=== PATIENT | female | born 1940 | race Caucasian/White ===

== ENCOUNTER 2016-10-07 13:45 | Emergency (ER) | payer MEDICARE ==
[~2016-10-07] VITALS: Ht 157.5 cm; Wt 104.3 kg
[~2016-10-07 13:45] MED LIST: ACET650T8 PO; ALBU0.63 NEB; ASPI325T11 PO; CALC600T4 PO; DICL75TA PO; HYDR-2762 PO; LOSA1TAB17 PO; METH-37 PO; MIRT45TA3 PO; OMEP40CA5 PO; OXYC-323 PO; PRAV40TA2 PO; TIOT18CA IH; VENTOLIN HFA18 GM INH
--- NOTE | 2016-10-07 14:47 | RAD ---
EXAM: Pelvis and right hip, 3 views. HISTORY: Pain. COMPARISON: None. FINDINGS: A frontal view the pelvis and frontal and frog-leg views of the right hip are obtained. No fracture is seen. There is degenerative change involving the lower lumbar spine and there is lumbar levoscoliosis. IMPRESSION: 1. No acute osseous finding. 2. Scoliosis and degenerative change involving the lumbar spine.
[2016-10-07] MEDS ORDERED: HYDROMORPHONE 2 MG/ML VIAL. IM ONE (15:00)
[2016-10-07] MEDS ORDERED: OXYC10TA PO (15:44)
--- NOTE | 2016-10-07 15:44 | PHYS DOC ---
Past Medical History Past Medical History: GERD, Hypertension Past Surgical History: Appendectomy, Cholecystectomy, Hysterectomy, Knee Replacement, Tonsillectomy Alcohol Use: Occasionally Drug Use: None Adult General Chief Complaint Chief Complaint: HIP PAIN HPI HPI Patient is a 76 year old female who presents with right hip pain. Patient reports she has been having increasing pain in her right hip over the course of several months. Today she was out shopping with her daughter, and her right hip became painful enough that she is unable to put any weight on the right lower extremity. No trauma or other inciting event. She has been taking Tylenol and diclofenac for the pain with insufficient relief. She does use a walker at home. She has an appointment with an orthopedist, but does not have that appointment for a few more weeks. No other acute complaints. Review of Systems Review of Systems Constitutional: Denies fever or chills Respiratory: Denies cough or shortness of breath Cardiovascular: Denies chest pain GI: Denies abdominal pain, nausea, vomiting, or diarrhea Musculoskeletal: R hip pain Neurologic: Denies headache, focal weakness or sensory changes Current Medications Current Medications Current Medications Medications (Trade) Dose Ordered Sig/Toi Start Time Stop Time Status Last Admin Dose Admin Hydromorphone HCl (Dilaudid) 1 mg 1X ONCE 10/07/16 15:00 10/07/16 15:01 DC 10/07/16 14:35 1 MG Allergies Allergies Allergies Coded Allergies Type Severity Reaction Last Updated Verified milk Adverse Reaction Unknown Nausea and Vomiting 12/21/15 Yes Physical Exam Physical Exam Constitutional: Well developed, well nourished, no acute distress, non-toxic appearance HENT: Normocephalic, atraumatic Eyes: EOMI, conjunctiva normal, no discharge Neck: No stridor Pulmonary: No respiratory distress Cardiovascular: RRR Skin: Warm, dry Musculoskeletal: R hip visually unremarkable; no erythema, wound, warmth to touch noted; 2+ DP pulse; pain in hip with passive ROM; no point TTP Neurologic: Alert and oriented X 3 Psychologic: Affect normal, judgement normal, mood normal Current Patient Data Vital Signs Vital Signs Date Time Temp Pulse Resp B/P Pulse Ox O2 Delivery O2 Flow Rate FiO2 10/07/16 14:54 160/81 97 Room Air 10/07/16 14:35 24 10/07/16 13:50 98.7 109 98.7 EKG EKG [] Radiology/Procedures Radiology/Procedures X-ray R hip: IMPRESSION: 1. No acute osseous finding. 2. Scoliosis and degenerative change involving the lumbar spine. Course & Med Decision Making Course & Med Decision Making Pertinent Labs and Imaging studies reviewed. (See chart for details) Patient is 76-year-old female who presents with right hip pain. Possible osteoarthritis or bursitis. Will obtain x-ray of right hip. IM pain medication ordered for pain control. Imaging results as above. Discussed results with patient and her daughter. Patient reports pain improved, and she is able to bear weight at this point, but is still having a fair amount of pain. Oral pain medication ordered for further pain control. At this time will turn patient care over to Dr. Mcclure for further management. If pain brought under control, will discharge home with rx for pain medication, ortho follow up, and return precautions. Dragon Disclaimer Dragon Disclaimer This electronic medical record was generated, in whole or in part, using a voice recognition dictation system. Departure Departure Impression: Primary Impression: Hip pain, right Disposition: 01 HOME, SELF-CARE Condition: IMPROVED Referrals: AVERY HAWTHORNE MD (PCP) Patient Instructions: Hip Pain Additional Instructions: Thank you for allowing us to provide care today in the Emergency Department. Take the provided medication as directed. Use caution when taking this medication as it can make you drowsy. Schedule a follow up appointment with your primary care doctor. Also keep your follow up appointment with the orthopedic surgeon. Return promptly to the Emergency Department if you develop any new or concerning symptoms. Scripts Oxycodone Hcl 10 Mg Nmdedt23 Mg PO Q8HRS PRN PAIN #30 TAB Ref 0 Prov:LORENA BNONER MD 10/07/16 LORENA BONNER MD Oct 07, 2016 15:44
[2016-10-07] MEDS ORDERED: OXYCODONE IR 5 MG TABLET. PO ONE (16:00)
[2016-10-07 16:54] LABS: CREATININE 0.9 mg/dL (0.6-1.0); GFR 61.2; POTASSIUM 3.9 mmol/L (3.5-5.1)
[2016-10-07] MEDS ORDERED: HYDROMORPHONE 2 MG/ML VIAL. IV ONE (17:30)
[2016-10-07] MEDS ORDERED: KETOROLAC 15 MG/ML VIAL. IV ONE (17:45)
[2016-10-07 18:22] VITALS: BP 172/78
--- NOTE | 2016-10-07 18:45 | RAD ---
PROCEDURE CT right hip without contrast dated 10/07/2016. HISTORY Right hip pain. No known injury. TECHNIQUE Contiguous axial imaging of right hip performed. No contrast administered. Thin cut coronal and sagittal reconstructions.Exposure: One or more of the following individualized dose reduction techniques were utilized for this exam: 1. Automated exposure control. 2. Adjustment of the mA and/or kV according to patient size. 3. Use of iterative reconstruction technique. COMPARISON Plain films done same day. FINDINGS There is a subtle radiolucent line along the base of the femoral neck/intratrochanteric region seen only on the coronal images( images 45 and 46) with slight elevation of the periosteum. No displaced fracture. The lucent line does not next extent posteriorly. Alignment is anatomic. Mild degenerative change at the right hip joint. The right-sided pelvic ring is otherwise intact. There is fatty atrophy of the proximal thigh musculature on the right. No apparent joint effusion or loose body. Vascular calcinosis. Scattered diverticulum within the distal colon. No pelvic adenopathy or free fluid. Right inguinal hernia containing only fat. IMPRESSION - No evidence of displaced right hip fracture. - Subtle radiolucent line at the anterior intertrochanteric region seen only on the coronal sequences. This could represent a nutrient vessel. Early stress fracture is not excluded. If indicated, MRI may provide additional information. - Degenerative changes as described above. - Diverticulosis. Electronically signed by: Malik White (Oct 07, 2016 18:43:45)
== END 2016-10-07 19:17 | disposition home or self-care (01) ==
LOC: ER 13:45
DX: M25.551 Pain in right hip (principal); I10 Essential (primary) hypertension; K21.9 Gastro-esophageal reflux disease without esophagitis; Z91.011 Allergy to milk products
CPT/HCPCS: 36415; 73502; 73700; 80048; 96372; 96374; 96375; 99285; J1170; J1885

== ENCOUNTER → 2017-10-10 | Outpatient (CLI) | payer MEDICARE | END | disposition home or self-care (01) | LOC: PNCL 09:27 | DX: M48.56XA Collapsed vertebra, not elsewhere classified, lumbar region, initial encounter for fracture (principal); K21.9 Gastro-esophageal reflux disease without esophagitis; I10 Essential (primary) hypertension; J44.9 Chronic obstructive pulmonary disease, unspecified; F32.9 Major depressive disorder, single episode, unspecified; E78.00 Pure hypercholesterolemia, unspecified; Z79.2 Long term (current) use of antibiotics; Z81.8 Family history of other mental and behavioral disorders; Z90.49 Acquired absence of other specified parts of digestive tract; Z96.641 Presence of right artificial hip joint; Z96.653 Presence of artificial knee joint, bilateral | CPT/HCPCS: G0463 ==

== ENCOUNTER → 2017-10-15 | Outpatient (CLI) | payer MEDICARE, OTHER ==
[~2017-10-15] MED LIST changes: -ACET650T8 PO; -ALBU0.63 NEB; -ASPI325T11 PO; -CALC600T4 PO; -DICL75TA PO; -HYDR-2762 PO; +IOHEXOL 240 MG/ML 50ML VIAL.; +LIDOCAINE WITH 8.4% SOD BICARB 3 ML DISP.SYRIN.; -LOSA1TAB17 PO; -METH-37 PO; -MIRT45TA3 PO; -OMEP40CA5 PO; -OXYC-323 PO; -PRAV40TA2 PO; -TIOT18CA IH; -VENTOLIN HFA18 GM INH
[2017-10-15] MEDS: LIDOCAINE WITH 8.4% SOD BICARB 3 ML DISP.SYRIN. IJ (11:14)
[2017-10-15] MEDS: IOHEXOL 240 MG/ML 50ML VIAL. IJ (11:14)
[2017-10-15] MEDS: MIDAZOLAM HCL/PF 5 MG/5 ML VIAL. IV (11:15)
[2017-10-15] MEDS: fentaNYL PF VIAL 250 MCG/5 ML VIAL IV (11:15)
[2017-10-15] MEDS: oxyCODONE/APAP 5/325 1 TAB TABLET PO (12:10)
== END ==
LOC: INTRAD 08:43
DX: M48.56XA Collapsed vertebra, not elsewhere classified, lumbar region, initial encounter for fracture (principal)
CPT/HCPCS: 22514; 99152; 99153; C1758; C1892; J0690; J2250; J3010; Q9966

== ENCOUNTER → 2017-11-28 | Outpatient (CLI) | payer MEDICARE ==
[~2017-11-28] MED LIST changes: +IOHEXOL 180 MG/ML 10 ML VIAL.; -IOHEXOL 240 MG/ML 50ML VIAL.; +LIDOCAINE 1% PF 2 ML VIAL.; -LIDOCAINE WITH 8.4% SOD BICARB 3 ML DISP.SYRIN.; +methylPREDNISolone ACETATE 40 MG/ML VIAL.; +methylPREDNISolone ACETATE 80 MG/ML VIAL.
== END | disposition home or self-care (01) ==
LOC: PNCL 10:07
DX: M51.16 Intervertebral disc disorders with radiculopathy, lumbar region (principal); M48.56XA Collapsed vertebra, not elsewhere classified, lumbar region, initial encounter for fracture; M54.5 Low back pain; Z98.49 Cataract extraction status, unspecified eye; E78.00 Pure hypercholesterolemia, unspecified; I10 Essential (primary) hypertension; J44.9 Chronic obstructive pulmonary disease, unspecified; G47.33 Obstructive sleep apnea (adult) (pediatric); Z90.49 Acquired absence of other specified parts of digestive tract; E66.9 Obesity, unspecified; K21.9 Gastro-esophageal reflux disease without esophagitis; Z90.710 Acquired absence of both cervix and uterus; M41.9 Scoliosis, unspecified; Z98.890 Other specified postprocedural states; Z96.652 Presence of left artificial knee joint; E11.9 Type 2 diabetes mellitus without complications; F32.9 Major depressive disorder, single episode, unspecified; Z87.891 Personal history of nicotine dependence; Z91.011 Allergy to milk products; Z88.1 Allergy status to other antibiotic agents; Z79.84 Long term (current) use of oral hypoglycemic drugs
CPT/HCPCS: 62323; J1030; J1040; Q9965

== ENCOUNTER → 2017-12-11 | Outpatient (CLI) | payer MEDICARE | END | disposition home or self-care (01) | LOC: PNCL 11:23 | DX: M51.16 Intervertebral disc disorders with radiculopathy, lumbar region (principal); Z91.011 Allergy to milk products; Z88.1 Allergy status to other antibiotic agents; Z98.49 Cataract extraction status, unspecified eye; Z96.1 Presence of intraocular lens; E78.00 Pure hypercholesterolemia, unspecified; I10 Essential (primary) hypertension; J44.9 Chronic obstructive pulmonary disease, unspecified; G47.33 Obstructive sleep apnea (adult) (pediatric); Z90.710 Acquired absence of both cervix and uterus; Z90.49 Acquired absence of other specified parts of digestive tract; E66.9 Obesity, unspecified; K21.9 Gastro-esophageal reflux disease without esophagitis; M41.9 Scoliosis, unspecified; Z96.652 Presence of left artificial knee joint; E11.9 Type 2 diabetes mellitus without complications; F32.9 Major depressive disorder, single episode, unspecified; Z87.891 Personal history of nicotine dependence; Z79.84 Long term (current) use of oral hypoglycemic drugs | CPT/HCPCS: 62323; J1030; J1040; Q9965 ==

== ENCOUNTER → 2017-12-27 | Outpatient (CLI) | payer MEDICARE | END | disposition home or self-care (01) | LOC: PNCL 10:45 | DX: M51.16 Intervertebral disc disorders with radiculopathy, lumbar region (principal); M48.56XA Collapsed vertebra, not elsewhere classified, lumbar region, initial encounter for fracture; M54.5 Low back pain; E78.00 Pure hypercholesterolemia, unspecified; I10 Essential (primary) hypertension; K21.9 Gastro-esophageal reflux disease without esophagitis; E11.9 Type 2 diabetes mellitus without complications; F32.9 Major depressive disorder, single episode, unspecified; Z91.011 Allergy to milk products; Z88.8 Allergy status to other drugs, medicaments and biological substances; Z98.42 Cataract extraction status, left eye; Z96.1 Presence of intraocular lens; J44.9 Chronic obstructive pulmonary disease, unspecified; G47.30 Sleep apnea, unspecified; Z90.49 Acquired absence of other specified parts of digestive tract; E66.9 Obesity, unspecified; Z90.710 Acquired absence of both cervix and uterus; Z96.652 Presence of left artificial knee joint; Z87.891 Personal history of nicotine dependence | CPT/HCPCS: 62323; J1030; J1040; Q9965 ==

== ENCOUNTER → 2018-06-18 | Outpatient (CLI) | payer MEDICARE ==
[2017-10-15 12:30] VITALS: BP 160/74
[~2018-06-18] MED LIST changes: +ACET-804 PO; +ACET500T68 PO; +ALBU0.63 NEB; +ALPR0.254 PO; +AMLO10TA4 PO; +ASCO250T2 PO; +ASPI325T11 PO; +BISA-42 PO; +BREO ELLIPTA 11 EACH IH; +CALC600T4 PO; +CHOL200059 PO; +DICL75TA PO; +DULO60CA6 PO; +ENOX40DI SQ; +ERTA1VIA IJ; +FERR325T72 PO; +FLUT9.9S NS; +HYDR-2765 PO; +HYDR25TA PO; -IOHEXOL 180 MG/ML 10 ML VIAL.; +LIDO700A39 TP; -LIDOCAINE 1% PF 2 ML VIAL.; +LORA10TA3 PO; +LOSA1TAB22 PO; +MAG355OR12 PO; +METH-37 PO; +MINE120C TP; +MINO100C PO; +MIRT45TA58 PO; +MULT1TAB52 PO; +OMEG1CAP6 PO; +OMEP40CA5 PO; +ONDA4TAB7 PO; +OXYC10TA PO; +OXYC1TAB15 PO; +OXYC5CAP PO; +PRAV40TA2 PO; +RANI300C PO; +SENN1TAB21 PO; +TIOT18CA IH; +VENTOLIN HFA18 GM INH; -methylPREDNISolone ACETATE 40 MG/ML VIAL.; -methylPREDNISolone ACETATE 80 MG/ML VIAL.
--- NOTE | 2018-06-18 11:34 | RAD ---
CHEST PA LATERAL Clinical indications: COUGH and shortness of air. COMPARISON: December 06, 2015. Findings: Old granulomas of the right lung field are seen which are stable. No acute lung infiltrate or pleural effusion or pulmonary edema or lung mass or pneumothorax is seen. The heart size, pulmonary vasculature, mediastinum and both luis angel are stable. Again seen is a compression fracture of T12. This was seen on the lumbar spine MRI study dated December 13, 2017. Impression: No acute lung infiltrate. Electronically signed by: Mohinder Mancini MD (06/18/2018 11:30 AM) [facility]
== END | disposition home or self-care (01) ==
LOC: RAD 11:03
PROVIDERS: ATTEND Internal Medicine Pulmonary Disease
DX: M48.54XD Collapsed vertebra, not elsewhere classified, thoracic region, subsequent encounter for fracture with routine healing (principal); J84.10 Pulmonary fibrosis, unspecified
CPT/HCPCS: 71046

== ENCOUNTER → 2018-07-28 | Outpatient (CLI) | payer MEDICARE ==
[2017-10-15 12:30] VITALS: BP 160/74
--- NOTE | 2018-07-28 12:50 | CARD ---
MR#: [id number] Date of Study: 07/28/2018 Ordering Physician: MARBELLA PINTO, Referring Physician: MARBELLA PINTO Tech: Jenna Lemon ANISA APPROVED REPORT EXAM: Two-dimensional and M-mode echocardiogram with Doppler and color Doppler. Other Information Quality : AverageHR: 73bpm Rhythm : NSRTechnically limited study due to body habitus. INDICATION Edema 2D DIMENSIONS RVDd3.5 (2.9-3.5cm)Left Atrium(2D)3.2 (1.6-4.0cm) IVSd1.5 (0.7-1.1cm)Aortic Root(2D)3.2 (2.0-3.7cm) LVDd4.4 (3.9-5.9cm)LVOT Diameter1.8 (1.8-2.4cm) PWd1.1 (0.7-1.1cm)IVSs1.6 (0.8-1.2cm) LVDs2.6 (2.5-4.0cm)FS (%) 40.6 % PWs1.5 (0.8-1.2cm)SV61.8 ml LVEF(%)71.6 (>50%) Aortic Valve AoV Peak Cameron.158.9cm/sAoV VTI32.9cm AO Peak GR.10.1mmHgLVOT Peak Cameron.97.5cm/s LVOT VTI 20.35cmAO Mean GR.6mmHg ROBBY (VMAX)1.30oe1WDQ (VTI)1.55cm2 Mitral Valve MV E Mpshiprs84.8cm/sMV DECEL [id number] MV A Enczyoza89.2cm/sMV [id number] E/A Ratio1.3MVA (PHT)4.47cm2 TDI E/Lateral E'7.7 Pulmonary Valve PV Peak Qzitckwo450.2cm/sPV Peak Grad.4mmHg LEFT VENTRICLE The left ventricle is normal size. Proximal septal thickening is noted. The left ventricular systolic function is normal and the ejection fraction is within normal range. The Ejection Fraction is 60-65% . There is normal LV segmental wall motion. Transmitral Doppler flow pattern is abnormal. RIGHT VENTRICLE The right ventricle is normal size. There is normal right ventricular wall thickness. The right ventr icular systolic function is normal. ATRIA The left atrium size is normal. The right atrium size is normal. The interatrial septum is intact wit h no evidence for an atrial septal defect or patent foramen ovale as noted on 2-D or Doppler imaging. AORTIC VALVE Not well visualized. Doppler and Color Flow revealed trace aortic regurgitation. There is no signific ant aortic valvular stenosis. MITRAL VALVE The mitral valve is normal in structure and function. There is no evidence of mitral valve prolapse. There is no mitral valve stenosis. Doppler and Color-flow revealed mild mitral regurgitation. TRICUSPID VALVE The tricuspid valve is normal in structure and function. Doppler and Color Flow revealed trace tricus pid regurgitation. There is no tricuspid valve prolapse or vegetation. There is no tricuspid valve st enosis. PULMONIC VALVE Pulmonic valve not well visualized. GREAT VESSELS The aortic root is normal in size. The ascending aorta is normal in size. The IVC is normal in size a nd collapses >50% with inspiration. PERICARDIAL EFFUSION There is a trace pericardial effusion vs fat pad noted. Critical Notification Critical Value: No <Conclusion> The left ventricular systolic function is normal and the ejection fraction is within normal range. Th e Ejection Fraction is 60-65%. There is normal LV segmental wall motion. Technically difficult study. Signed by : Avelino Tripp, Electronically Approved : 07/28/2018 12:48:06
--- NOTE | 2018-07-28 13:15 | RAD ---
MR#: [id number] Date of Study: 07/28/2018 Ordering Physician: MARBELLA PINTO, Referring Physician: MARBELLA PINTO, Tech: Oren Hayward, RANDY, RDMS, RVT, RDCS, RTR APPROVED REPORT Patient Location : OUT-PATIENT Indications Lower Extremity Edema : Bilateral Findings Grayscale images of the bilateral saphenofemoral junctions do not reveal any obvious evidence of thro mbus. The right great saphenous vein measures 6.8 mm and the left great saphenous vein measures 5.2 m m. The bilateral greater and lesser saphenous veins do not reveal any obvious evidence of reflux. Critical Notification Critical Value: No <Conclusion> 1. No evidence of reflux in the bilateral greater and lesser saphenous veins. Signed by : Avelino Tripp, Electronically Approved : 07/28/2018 13:13:36
--- NOTE | 2018-07-28 13:18 | RAD ---
MR#: [id number] Date of Study: 07/28/2018 Ordering Physician: MARBELLA PINTO, Referring Physician: MARBELLA PINTO, Tech: Oren Hayward MBA, RDMS, RVT, RDCS, RTR APPROVED REPORT Bilateral Lower Extremity Venous Study for DVT Patient Location: OUT-PATIENT Indications Lower Extremity Edema: Bilateral Vein Imaging (Right) CFV (R): Compressible SFJ (R): Compressible FEM (R): Compressible POP (R): Compressible DFV (R): Compressible PTV (R): Compressible GSV (R): Spontaneous Peroneals (R): Spontaneous Vein Imaging (Left) CFV (L): Compressible SFJ (L): Compressible FEM (L): Compressible POP (L): Compressible DFV (L): Compressible PTV (L): Spontaneous GSV (L): Spontaneous Peroneals (L): Spontaneous Doppler Evaluation (Right) CFV (R): Spontaneous POP (R):Spontaneous Doppler Evaluation (Left) CFV (L):Spontaneous POP (L):Spontaneous Findings The bilateral lower extremity deep veins were evaluated for thrombus with color Doppler, spectral and grayscale images. On the right the grayscale images of the common femoral, superficial femoral and popliteal veins do n ot demonstrate any evidence of thrombus and these veins appear to be compressible. The below-knee vei ns were not well visualized but grossly appear to be compressible. Spectral imaging and color Doppler do not reveal any evidence of obstruction to flow with normal respirophasic variation above the knee . Below the knee there is spontaneous flow noted. On the left, the grayscale images of the common femoral, superficial femoral and popliteal veins do n ot demonstrate any evidence of thrombus and these veins appear to be compressible. The below-knee vei ns again were not well visualized but grossly appear to be compressible. Spectral imaging and color D oppler do not reveal any evidence of obstruction to flow with normal respirophasic variation above th e knee. The below-knee veins demonstrate spontaneous flow. Critical Notification Critical Value: No <Conclusion> No obvious DVT noted Technically difficult study Signed by : Avelino Tripp, Electronically Approved : 07/28/2018 13:16:57
== END | disposition home or self-care (01) ==
LOC: ECHO 10:43
PROVIDERS: ATTEND Nurse Practitioner
DX: R60.0 Localized edema (principal); I34.0 Nonrheumatic mitral (valve) insufficiency
CPT/HCPCS: 93306; 93970

== ENCOUNTER 2018-09-19 12:48 | Emergency (ER) | payer MEDICARE ==
[~2018-09-19] VITALS: Ht 157.5 cm; Wt 108.9 kg
[~2018-09-19 12:48] MED LIST changes: -SENN1TAB21 PO; +SENN1TAB62 PO
--- NOTE | 2018-09-19 12:59 | PHYS DOC ---
Past Medical History Past Medical History: GERD, Hypertension Past Surgical History: Appendectomy, Cholecystectomy, Hysterectomy, Knee Replacement, Tonsillectomy Alcohol Use: Occasionally Drug Use: None Adult General HPI HPI Patient is a 78 year old biba mechanical fall tripped on curb no blood thinngers h/a diffuse wosrening mild to moderate neck pain midline noted, did not tolerate ccollar on arrival due to occipital contusion Review of Systems Review of Systems Respiratory: Denies cough or shortness of breath [] Cardiovascular: No additional information not addressed in HPI [] Musculoskeletal: chronic hip pain Integument: Denies rash or skin lesions [] Neurologic: Denies headache, focal weakness or sensory changes [] All other systems were reviewed and found to be within normal limits, except as documented in this note. Current Medications Current Medications Current Medications Medications (Trade) Dose Ordered Sig/Toi Start Time Stop Time Status Last Admin Dose Admin Acetaminophen (Tylenol) 1,000 mg 1X ONCE 09/19/18 13:00 09/19/18 13:01 DC 09/19/18 13:12 1,000 MG Allergies Allergies Allergies Coded Allergies Type Severity Reaction Last Updated Verified ceftriaxone Allergy Unknown rash 10/10/17 Yes milk Adverse Reaction Unknown Nausea and Vomiting 12/21/15 Yes Physical Exam Physical Exam Constitutional: Well developed, well nourished, no acute distress, non-toxic appearance. [] HENT: Normocephalic, contusion occiput, bilateral external ears normal, oropharynx moist, no oral exudates, nose normal. [] Eyes: PERRLA, EOMI, conjunctiva normal, no discharge. [] Neck: Normal range of motion,mild midline tenderness, supple, no stridor. [] Cardiovascular:Heart rate regular rhythm, no murmur [] Lungs & Thorax: Bilateral breath sounds clear to auscultation [] no chest wall ttp Abdomen: Bowel sounds normal, soft, no tenderness, no masses, no pulsatile masses. [] Skin: Warm, dry, no erythema, no rash. [] Extremities: No tenderness, no cyanosis, no clubbing, ROM intact, no edema. [] Neurologic: Alert and oriented X 3, normal motor function, normal sensory function, no focal deficits noted. [] Psychologic: Affect normal, judgement normal, mood normal. [] Current Patient Data Vital Signs Vital Signs Date Time Temp Pulse Resp B/P (MAP) Pulse Ox O2 Delivery O2 Flow Rate FiO2 09/19/18 13:23 90 94 09/19/18 13:01 98.3 20 163/93 (116) Room Air 98.3 EKG EKG [] Radiology/Procedures Radiology/Procedures [] Impressions: CT of the cervical spine without contrast, 09/19/2018: Noncontrast scans were obtained with multiplanar reconstructions produced. There is a mild cervical scoliosis. There is disc space narrowing and marginal spurring at multiple levels, most severe at C5-C6, C6-7 and C2-3. There appears to be partial fusion of the facet joints bilaterally at C2-3. There is moderate facet joint arthropathy at multiple levels bilaterally, worse on the left. Mild anterolisthesis at C4-5 and C5-6 appears to be due to facet joint arthropathy. There is mild associated central spinal stenosis at several levels. There is foraminal stenosis at multiple levels, most severe at C3-4 bilaterally. There is a small old appearing defect in the left lamina at C4. This may be developmental, postsurgical or secondary to remote trauma. No acute fracture or dislocation is identified. IMPRESSION: 1. Moderate multilevel degenerative change as described above. 2. No acute bony abnormality is detected. Electronically signed by: Trevor Guardado MD (09/19/2018 1:57 PM) [facility] DICTATED and SIGNED BY: TREVOR GUARDADO Course & Med Decision Making Course & Med Decision Making Pertinent Labs and Imaging studies reviewed. (See chart for details) []CLOSED HEAD INJURY CT NEGATIVE PT AND DAUGHTER REASSURED IN DETAIL BACK PAIN CHRONIC NO NEED FOR NEW IMAGING PT HAS NO FOCAL TTP I DISCUSSED THIS WITH DAUGHTER AND PATIENT WHO ARE IN AGRREEMENT Dragon Disclaimer Dragon Disclaimer This electronic medical record was generated, in whole or in part, using a voice recognition dictation system. Departure Departure Impression: Primary Impression: Closed head injury Disposition: HOME, SELF-CARE Condition: STABLE Patient Instructions: Head Injury, Adult, [id number] CARIDAD HENDERSON MD Sep 19, 2018 12:58
[2018-09-19] MEDS ORDERED: ACETAMINOPHEN 500 MG TABLET PO ONE (13:00)
[2018-09-19 13:23] VITALS: BP 156/70
--- NOTE | 2018-09-19 14:00 | RAD ---
CT of the head without contrast, 09/19/2018: HISTORY: Injury, head and neck pain Hyperostosis interna is present. The ventricles are within normal limits in size. There is no shift of the midline structures. There is no evidence of acute intracranial hemorrhage or mass effect. There is calcific plaquing of the distal internal carotid and vertebral arteries. IMPRESSION: No acute intracranial abnormality is detected. CT of the cervical spine without contrast, 09/19/2018: Noncontrast scans were obtained with multiplanar reconstructions produced. There is a mild cervical scoliosis. There is disc space narrowing and marginal spurring at multiple levels, most severe at C5-C6, C6-7 and C2-3. There appears to be partial fusion of the facet joints bilaterally at C2-3. There is moderate facet joint arthropathy at multiple levels bilaterally, worse on the left. Mild anterolisthesis at C4-5 and C5-6 appears to be due to facet joint arthropathy. There is mild associated central spinal stenosis at several levels. There is foraminal stenosis at multiple levels, most severe at C3-4 bilaterally. There is a small old appearing defect in the left lamina at C4. This may be developmental, postsurgical or secondary to remote trauma. No acute fracture or dislocation is identified. IMPRESSION: 1. Moderate multilevel degenerative change as described above. 2. No acute bony abnormality is detected. Electronically signed by: Trevor Guardado MD (09/19/2018 1:57 PM) [facility]
== END 2018-09-19 14:38 | disposition home or self-care (01) ==
LOC: ER 12:48
DX: S00.03XA Contusion of scalp, initial encounter (principal); M54.2 Cervicalgia; K21.9 Gastro-esophageal reflux disease without esophagitis; I10 Essential (primary) hypertension; Z88.1 Allergy status to other antibiotic agents; Z91.011 Allergy to milk products; W10.1XXA Fall (on)(from) sidewalk curb, initial encounter; Y93.89 Activity, other specified; Y92.89 Other specified places as the place of occurrence of the external cause; Y99.8 Other external cause status
CPT/HCPCS: 70450; 72125; 99284-25

== ENCOUNTER → 2019-05-28 | Outpatient (CLI) | payer MEDICARE ==
[~2019-05-28] MED LIST changes: +ASCO250T12 PO; -ASCO250T2 PO; +IOHEXOL 180 MG/ML 10 ML VIAL. ONE; +LIDO700A21 TP; -LIDO700A39 TP; -MINO100C PO; +MINO100C61 PO; +OMEP40CA45 PO; -OMEP40CA5 PO; +methylPREDNISolone ACETATE 40 MG/ML VIAL. ONE; +methylPREDNISolone ACETATE 80 MG/ML VIAL. ONE
--- NOTE | 2019-05-28 13:01 | PAIN ---
DATE OF SERVICE: 05/28/2019 PROGRESS NOTE FOR PAIN CLINIC DIAGNOSES: Lumbar radiculopathy with lumbar degenerative disk disease. HISTORY OF PRESENT ILLNESS: The patient is a 79-year-old female who returns for followup status post lumbar epidural steroid injections x 3, last seen on 12/27/2017. The patient did very well with about a 50% improvement for the first month or so after the injections. The patient reports she has had some other issues with her health over the past year and a half and is having some increased low back pain and bilateral lower extremity pain since that time. The patient reports it is an 8 on a scale of 10 at its worst, 6 on average, 2-3 at its least and is 6 today. The patient reports it is stabbing, constant in the low back radiating to posterior gluteus, posterior thighs, posterior calves, somewhat more on the right than the left, but present bilaterally. The patient reports no new motor or sensory deficits, no new changes. She has difficulty trying to do physical therapy exercises and exercises on her own because the pain is so significant. The patient reports it awakens her from sleep occasionally, but not every night. The patient reports no new motor or sensory deficits, no new bowel or bladder incontinence or other complaints. PHYSICAL EXAMINATION: VITAL SIGNS: The patient's blood pressure is 128/83, pulse is 101, respirations 18, temperature 97.9 degrees Fahrenheit, height is 5 feet 2 inches. The patient defers weight as she is using a wheelchair today. HEENT: Shows normocephalic, atraumatic. Extraocular movements are intact and symmetrical. Oral cavity: Mucous membranes moist and pink. Dentition is intact. NECK: Shows anterior throat supple without palpable lymphadenopathy noted. Swallow reflex symmetrical. CHEST: Shows normal on inspection. Breath sounds clear to auscultation bilaterally. HEART: Shows S1, S2 clear. No murmurs auscultated. ABDOMEN: Soft, nontender, nondistended. No palpable organomegaly is noted. No rebound or guarding demonstrated. BACK: Shows spine grossly in the midline. Normal appearing thoracic kyphosis and minor flattening of lumbar lordotic curvature. Lumbar paraspinous muscle shows symmetrical on inspection, with palpation shows some moderate tenderness diffusely bilaterally, but only diffusely. The patient has full rotational motion of the lumbar spine both laterally greater than 10 degrees right and left as well as extension greater than 10 degrees, forward flexion 45 degrees without difficulty. EXTREMITIES: Lower extremities show deep tendon reflexes at 1+ in the patellar and tendo calcaneus tendons. Motor exam is strong with dorsiflexion and extension rated at 5/5, quadriceps and hamstring flexion approximately 4/5, but equal and symmetrical. The patient does have a well-healed surgical scar on the right lateral aspect of the thigh with some bruising around the old scar site as well. Peripheral pulses are 1+ in posterior tibia. No peripheral edema. Options were discussed with the patient. The patient's old chart was reviewed as her current medication regimen updated. Current review of systems updated today as well. Also discussed the options with the patient's daughter, who accompanies her to visit today. We will plan on lumbar epidural steroid injection today with fluoroscopic guidance. Risks were again discussed including, but not limited to bleeding, infection, possibility of epidural hematoma, subsequent neurological compromise, dural puncture, headaches, spinal cord and/or nerve damage, side effects of steroid medication and poor results regarding pain control. The patient understands and wishes to proceed. The patient will return to clinic in approximately 2 weeks for followup. She was counseled on return appointment, activity level and side effects to be aware of. DIAGNOSIS: Lumbar radiculopathy with lumbar degenerative disk disease. PROCEDURE: Lumbar epidural steroid injection, translaminar approach, at L5-S1 level using C-arm fluoroscopic guidance under sterile prep and drape using local anesthetic. MEDICATIONS INJECTED: A total of 120 mg Depo-Medrol plus 10 mL of preservative-free normal saline and 2 mL of contrast. CONDITION AT DISCHARGE: Stable. The patient tolerated the procedure well, had no complications. ENRIQUE BECERRIL MD DR: VINCE/germaine JOB#: [id number] / [id number]
== END ==
LOC: PNCL 10:40
PROVIDERS: ATTEND Anesthesiology
DX: M51.16 Intervertebral disc disorders with radiculopathy, lumbar region (principal)
CPT/HCPCS: 62323; J1030; J1040; Q9965

== ENCOUNTER → 2019-07-21 | Outpatient (CLI) | payer MEDICARE ==
--- NOTE | 2019-07-21 12:55 | PAIN ---
DATE OF SERVICE: 07/21/2019 PROGRESS NOTE FOR PAIN CLINIC DIAGNOSES: Lumbar radiculopathy with lumbar degenerative disk disease. HISTORY OF PRESENT ILLNESS: The patient is a 79-year-old female, who returns for followup status post lumbar epidural steroid injection x 1. The patient reports about 60% improvement overall in the low back and bilateral lower extremities. The patient reports increased activity with greater distance walking, getting around the house with easier greater ease and comfort and doing household activities with some greater ease and comfort. The patient reports she is sleeping well at night. The patient reports it does not awaken her from sleep, better with sitting or lying down. No new motor or sensory deficits. The patient reports pain is 8 on a scale of 10 at its worst in the past week, 4 on average, 2 at its least and is a 4 today. The patient reports it is aching, burning, stabbing across the low back into the posterior gluteus, posterior thighs, mostly in the low back. The patient reports no new motor or sensory deficits, no new bowel or bladder incontinence. Reports she is taking her pain medication on schedule now, which has been decreasing the pain much more significantly at home as well with some constipation, but without any other side effects. PHYSICAL EXAMINATION: VITAL SIGNS: The patient's blood pressure 120/70, pulse 91, respirations 18, temperature 97.8 degrees Fahrenheit, height is 5 feet 2 inches. GENERAL: The patient is awake, alert, oriented, appropriate, very pleasant demeanor. HEENT: Shows normocephalic, atraumatic. Extraocular movements are intact and symmetrical. Oral cavity: Mucous membranes moist and pink. Dentition is intact. NECK: Shows anterior throat supple without palpable lymphadenopathy noted. Swallow reflex symmetrical. CHEST: Shows normal on inspection. Breath sounds clear bilaterally. HEART: Shows S1, S2 clear. No murmurs auscultated. ABDOMEN: Soft, obese, nontender, nondistended. No palpable organomegaly is noted. No rebound or guarding demonstrated. BACK: Shows spine grossly in the midline. Some increase in thoracic kyphosis and minor flattening of lumbar lordotic curvature. Lumbar paraspinous muscle shows symmetrical on inspection, on palpation shows some moderate tenderness diffusely bilaterally going diffusely without significant radiation. The patient has good rotational motion of lumbar spine, both laterally as well as extension and flexion without difficulty. EXTREMITIES: Lower extremities showed deep tendon reflexes 1+ in the patellar and tendo calcaneus tendons. Motor exam is approximately 5 on a scale of 5 with ankles and 4/5 with quadriceps and hamstring flexion, but symmetrical bilaterally. Peripheral pulses are 1+. No peripheral edema is noted. Options were discussed with the patient. The patient's old chart was reviewed as her current medication regimen updated. Current review of systems updated today as well. We will proceed with a second in the series of lumbar epidural steroid injection today with fluoroscopic guidance. Risks were again discussed including, but not limited to bleeding, infection, possibility of epidural hematoma, subsequent neurologic compromise, dural puncture, headaches, spinal cord and/or nerve damage, side effects of steroid medication and poor results regarding pain control. The patient understands and wished to proceed. The patient will return to clinic in approximately 2 weeks for followup, was counseled on return appointment, activity level and side effects to be aware of. DIAGNOSIS: Lumbar radiculopathy with lumbar degenerative disk disease. PROCEDURE: Lumbar epidural steroid injection, translaminar approach at L5-S1 level using C-arm fluoroscopic guidance under sterile prep and drape using local anesthetic. MEDICATION INJECTED: A total of 120 mg of Depo-Medrol plus 10 mL of preservative-free normal saline and 2 mL of contrast. CONDITION AT DISCHARGE: Stable. The patient tolerated procedure well, had no complications. ENRIQUE BECERRIL MD DR: VINCE/germaine JOB#: [id number] / [id number]
== END ==
LOC: PNCL 10:15
PROVIDERS: ATTEND Anesthesiology
DX: M51.16 Intervertebral disc disorders with radiculopathy, lumbar region (principal)
CPT/HCPCS: 62323; J1030; J1040; Q9965

== ENCOUNTER → 2020-02-23 | Outpatient (CLI) | payer MEDICARE ==
[~2020-02-23] MED LIST changes: -CALC600T4 PO; +CALC600T6 PO; -ERTA1VIA IJ; +ERTA1VIA16 IJ; +MULT-445 PO; -MULT1TAB52 PO
--- NOTE | 2020-02-23 11:37 | PDOC ---
Progress Note - Pain Clinic Date of Service: DOS: DATE: 02/23/20 TIME: 11:32 Diagnosis: Dx: Lumbar radiculopathy with lumbar degenerative disc disease and lumbar compression fracture History or Present Illness: HPI: 79-year-old female returns for follow-up status post lumbar epidural steroid injections most recently July 21, 2019. Patient was about 50% improvement after the last injection in the low back and the bilateral hips and lower extremities patient ports no new motor or sensory deficits no new bowel or bladder incontinence rates her pain as a 10 on scale 10 is worse over the past week 6 on average and a 2 is least 6 a day worse when moving standing changing positions better with sitting or laying down patient which generally does not awaken her from sleep at night patient reports no new motor or sensory deficits describes the pain is constant and severe at times with standing walking and moving or changing positions. Patient reports no new changes or other complaints. Physical Exam: VS: Blood pressure is 126/66 pulse 85 respirations are 16 temperature is 98.4 F height is 5 feet 2 inches weight is 211 pounds PE: PHYSICAL EXAMINATION: GENERAL: The patient is awake, alert, oriented, appropriate, very pleasant demeanor, patient accompanied by her daughter. HEENT: Shows normocephalic, atraumatic. Extraocular movements are intact and sy mmetrical. Oral cavity: Mucous membranes moist and pink. Dentition is intact. NECK: Shows anterior throat supple without palpable lymphadenopathy noted. CHEST: Shows normal on inspection. Breath sounds are clear bilaterally, no rales rhonchi or wheezes auscultated. HEART: Shows S1, S2 clear. No murmurs auscultated. ABDOMEN: Soft, nontender, nondistended. No palpable organomegaly is noted. No rebound or guarding demonstrated. BACK: Shows spine grossly in the midline. Normal-appearing cervical lordotic curvature. There is slightly increased thoracic kyphosis, some minor flattening of the lumbar lordotic curvature. Lumbar paraspinous muscles show symmetrical on inspection, on palpation shows some moderate tenderness diffusely throughout the upper, middle and lower distribution of the paraspinous muscles bilaterally and firm and tender, but without specific trigger points, without radiation of pain. The patient has good rotational motion of the lumbar spine, both laterally as well as extension and flexion without significant difficulty. No tenderness over the spinous processes, sacrum or sacroiliac regions. EXTREMITIES: Lower extremities show deep tendon reflexes 1+ in the patellar and tendo calcaneus tendons. Motor exam is 4 on a scale of 5 with right dorsiflexion, extension, quadriceps and hamstring flexion and 4/5 on the left. Peripheral pulses are 1+ posterior tibial. No peripheral edema is noted bilaterally. Lower extremities are warm and dry to touch, equal in color and appearance. The patient is able to stand but has significant need for assistance getting out of the chair and into a standing position and then to another seated position she had difficulty lifting her left leg, patient is using a wheelchair on her presentation today.. SKIN: Shows warm and dry, good turgor. No edema. No sores, rashes or bruising throughout. Procedure: Procedure: Patient's old chart was reviewed as was her medication regimen updated current review of systems updated today as well. Options were discussed with the patient patient's daughter who accompanied her to her visit today. We will proceed with a lumbar epidural steroid injection as she did very well with these in the past. Risks are discussed including but not limited to bleeding infection possibility of epidural hematoma and subsequent neurological compromise dural puncture headache spinal cord and or nerve damage side effects of steroid medication/guarding pain control. Patient understands wished to proceed. Patient return to clinic in approximately 1 month for follow-up was counseled as to return appointment activity level and side effects to be aware of. Medication Injected: Med Injected: Procedure is lumbar epidural steroid injection under local anesthetic using sterile prep and drape at the L5-S1 level using C-arm fluoroscopic guidance in both AP and lateral views medications injected is 120 mg Depo-Medrol +[]mL preservative-free normal saline and 2 mL contrast- condition at discharge is stable patient tolerated procedure well had no complications. Condition at Discharge: Condition at Discharge: Condition at discharge is stable patient tolerated the procedure well and had no complications. ENRIQUE BECERRIL MD Feb 23, 2020 11:37
== END | disposition home or self-care (01) ==
LOC: PNCL 10:14
PROVIDERS: ATTEND Anesthesiology
DX: M51.16 Intervertebral disc disorders with radiculopathy, lumbar region (principal); M84.48XA Pathological fracture, other site, initial encounter for fracture; Z87.891 Personal history of nicotine dependence; Z88.8 Allergy status to other drugs, medicaments and biological substances; Z79.899 Other long term (current) drug therapy
CPT/HCPCS: 62323; J1030; J1040; Q9965

== ENCOUNTER → 2020-05-05 | Outpatient (CLI) | payer MEDICARE ==
--- NOTE | 2020-05-05 11:32 | PDOC ---
Progress Note - Pain Clinic Date of Service: DOS: DATE: 05/05/20 TIME: : Diagnosis: Dx: Lumbar radiculopathy with lumbar degenerative disc disease Compression fractures of L3 and L4 History or Present Illness: HPI: 80-year-old female returns follow-up status post lumbar epidural steroid injections x3 most recently February 23, 2020. Patient with about 75% improvement for the first month and the pain beginning to return now is about 40 to 50% provement overall patient reports that the pain is increasing across the low b ack and the bilateral lower extremities posterior gluteus posterior thighs as well as in the mid back and low back patient was aching sharp dull tight shooting alternating tingling and burning in the back cramping and stabbing in the legs becoming more constant with walking standing changing positions. Patient reports that it is worse with standing and walking better with sitting or laying down does not awaken her from sleep at night initially she was doing much better with distance walking getting in and out of the chair with greater ease and comfort but now the pain returns as noted. Patient reports no bowel or bladder incontinence changes no new motor or sensory deficit changes. Physical Exam: VS: Blood pressure is 145/83 pulse 94 respirations 16 temperature 90.1 F height is 5 foot 2 inches weight is 205 lbs. PE: PHYSICAL EXAMINATION: GENERAL: The patient is awake, alert, oriented, appropriate, very pleasant demeanor HEENT: Shows normocephalic, atraumatic. Extraocular movements are intact and symmetrical. NECK: Shows anterior throat supple without palpable lymphadenopathy noted. Swallow reflex symmetrical. CHEST: Shows normal on inspection. Breath sounds are clear bilaterally, no rales rhonchi or wheezes auscultated. HEART: Shows S1, S2 clear. No murmurs auscultated. ABDOMEN: Soft, nontender, nondistended, obese. No palpable organomegaly is noted. No rebound or guarding demonstrated. BACK: Shows spine grossly in the midline. Normal-appearing cervical lordotic curvature. There is slightly increased thoracic kyphosis, some minor flattening of the lumbar lordotic curvature. Lumbar paraspinous muscles show symmetrical on inspection, on palpation shows some moderate tenderness diffusely throughout the upper, middle and lower distribution of the paraspinous muscles but without specific trigger points, without radiation of pain. The patient has good rotational motion of the lumbar spine, both laterally as well as extension and flexion without significant difficulty. No tenderness over the spinous processes, sacrum or sacroiliac regions. EXTREMITIES: Lower extremities show deep tendon reflexes 1+ in the patellar and tendo calcaneus tendons. Motor exam is 4 on a scale of 5 with right dorsiflexion, extension, quadriceps and hamstring flexion and 4/5 on the left. Peripheral pulses are 1+ posterior tibial. No peripheral edema is noted bilaterally. Lower extremities are warm and dry to touch, equal in color and appearance. SKIN: Shows warm and dry, good turgor. No edema. No sores, rashes or bruising throughout. Procedure: Procedure: Options were discussed with the patient. Patient will chart reviews her current medication regimen updated current review of systems updated today as well. We will proceed with a first in the series lumbar epidural steroid injection today with fluoroscopic guidance. Risks were discussed including but not limited to: Bleeding, infection, possibility of epidural hematoma and subsequent rashad rological compromise, dural puncture, headaches, spinal cord and/or nerve damage, side effects of steroid medication, and poor results regarding pain control. Patient understands wished to proceed. Patient return to clinic in approximate 2 weeks for follow-up was counseled as return appointment activity level and side effects to be aware of. Medication Injected: Med Injected: Procedure is lumbar epidural steroid injection under local anesthetic using sterile prep and drape at the L5-S1 level using C-arm fluoroscopic guidance in both AP and lateral views medications injected is 120 mg Depo-Medrol + 10 mL preservative-free normal saline and 2 mL contrast- condition at discharge is stable patient tolerated procedure well had no complications. Condition at Discharge: Condition at Discharge: Condition at discharge is stable, patient tolerated the procedure well and had no complications. ENRIQUE BECERRIL MD May 05, 2020 11:32
== END ==
LOC: PNCL 10:07
PROVIDERS: ATTEND Anesthesiology
DX: M51.16 Intervertebral disc disorders with radiculopathy, lumbar region (principal); M48.56XA Collapsed vertebra, not elsewhere classified, lumbar region, initial encounter for fracture; I10 Essential (primary) hypertension; K21.9 Gastro-esophageal reflux disease without esophagitis; Z88.8 Allergy status to other drugs, medicaments and biological substances; Z87.891 Personal history of nicotine dependence; Z79.899 Other long term (current) drug therapy
CPT/HCPCS: 62323; J1030; J1040; Q9965

== ENCOUNTER → 2020-07-11 | Outpatient (CLI) | payer MEDICARE ==
[~2020-07-11] MED LIST changes: +OXYC20TA PO
--- NOTE | 2020-07-11 15:18 | PDOC ---
Progress Note - Pain Clinic Date of Service: DOS: DATE: 07/11/20 TIME: 15:15 Diagnosis: Dx: Lumbar radiculopathy with lumbar degenerative disease Compression fracture L3 and L4 History or Present Illness: HPI: -year-old female returns follow-up status post lumbar epidural steroid injection x1. Last seen May 05, 2000 reports she did very well with about a 50% improvement overall with better increased ability to ambulate and change positions with good ability to travel getting in and out of her wheelchair which she prefers to use. Patient reports her pain is in the low back bilaterally in the lower extremities posterior gluteus posterior thighs and calves mostly in the low back when she is standing better with sitting or laying down generally does not awaken her from sleep at night patient reports her pain is a 10 on scale 10 is worse over the past week 7 on average 3 its least is a 5 today. Pat damion reports no new motor or sensory deficits no bowel or bladder incontinence or other complaints. Physical Exam: VS: Pressure 134/69 pulse 88 respirations 16 temperature is 98.3 F height is 5 feet 2 inches weight is 208 pounds PE: PHYSICAL EXAMINATION: GENERAL: The patient is awake, alert, oriented, appropriate, very pleasant demeanor, patient accompanied by her daughter. HEENT: Shows normocephalic, atraumatic. Extraocular movements are intact and symmetrical. Oral cavity: Mucous membranes moist and pink. Dentition is intact. NECK: Shows anterior throat supple without palpable lymphadenopathy noted. Swallow reflex symmetrical. CHEST: Shows normal on inspection. Breath sounds are clear bilaterally, distant but clear bilaterally. HEART: Shows S1, S2 clear. No murmurs auscultated. ABDOMEN: Soft, nontender, nondistended, obese. No palpable organomegaly is noted. No rebound or guarding demonstrated. BACK: Shows spine grossly in the midline. Normal-appearing cervical lordotic curvature. There is increased thoracic kyphosis, some flattening of the lumbar lordotic curvature. Lumbar paraspinous muscles show symmetrical on inspection, on palpation shows some moderate tenderness diffusely throughout the upper, middle and lower distribution of the paraspinous muscles, but without specific trigger points, without radiation of pain. The patient has good rotational motion of the lumbar spine, both laterally as well as extension and flexion without significant difficulty. No tenderness over the sacrum or sacroiliac regions. EXTREMITIES: Lower extremities show deep tendon reflexes 1+ in the patellar and tendo calcaneus tendons. Motor exam is 4 on a scale of 5 with right dorsiflexion, extension, quadriceps and hamstring flexion and 4/5 on the left. Peripheral pulses are 1+ posterior tibial. No peripheral edema is noted bilaterally. Lower extremities are warm and dry to touch, equal in color and appearance. SKIN: Shows warm and dry, good turgor. No edema. No sores, rashes or bruising throughout. Procedure: Procedure: Options were discussed with the patient and patient's daughter who accompanied her at her visit today. We will proceed with a second in the series lumbar ep idural steroid injection today with fluoroscopic guidance. Risks were discussed including but not limited to: Bleeding, infection, possibility of epidural hematoma and subsequent neurological compromise, dural puncture, headaches, spinal cord and/or nerve damage, side effects of steroid medication, and poor results regarding pain control. Patient understands wished to proceed. Patient return to the clinic in approximately 2 weeks for follow-up was counseled as to return appointment activity level and side effects to be aware of. Medication Injected: Med Injected: Procedure is lumbar epidural steroid injection under local anesthetic using sterile prep and drape at the L5-S1 level using C-arm fluoroscopic guidance in both AP and lateral views medications injected is 120 mg Depo-Medrol + 10 mL preservative-free normal saline and 2 mL contrast- condition at discharge is stable patient tolerated procedure well had no complications. Condition at Discharge: Condition at Discharge: Condition at discharge is stable, patient tolerated the procedure well and had no complications. ENRIQUE BECERRIL MD Jul 11, 2020 15:18
== END | disposition home or self-care (01) ==
LOC: PNCL 14:21
PROVIDERS: ATTEND Anesthesiology
DX: M54.16 Radiculopathy, lumbar region (principal); M84.48XA Pathological fracture, other site, initial encounter for fracture; Z88.8 Allergy status to other drugs, medicaments and biological substances; M51.37 Other intervertebral disc degeneration, lumbosacral region; E11.9 Type 2 diabetes mellitus without complications; I10 Essential (primary) hypertension; E78.00 Pure hypercholesterolemia, unspecified; M17.11 Unilateral primary osteoarthritis, right knee; F32.9 Major depressive disorder, single episode, unspecified; G47.33 Obstructive sleep apnea (adult) (pediatric); J44.9 Chronic obstructive pulmonary disease, unspecified; E66.9 Obesity, unspecified; K21.9 Gastro-esophageal reflux disease without esophagitis; Z91.011 Allergy to milk products; Z98.42 Cataract extraction status, left eye; Z88.1 Allergy status to other antibiotic agents; Z98.890 Other specified postprocedural states; Z79.899 Other long term (current) drug therapy; Z79.84 Long term (current) use of oral hypoglycemic drugs; Z79.2 Long term (current) use of antibiotics; Z81.8 Family history of other mental and behavioral disorders; Z96.641 Presence of right artificial hip joint; Z96.653 Presence of artificial knee joint, bilateral; Z87.891 Personal history of nicotine dependence; Z90.49 Acquired absence of other specified parts of digestive tract; Z90.710 Acquired absence of both cervix and uterus; Z96.1 Presence of intraocular lens; Z91.81 History of falling
CPT/HCPCS: 62323; J1030; J1040; Q9965

== ENCOUNTER → 2020-09-16 | Outpatient (CLI) | payer MEDICARE ==
--- NOTE | 2020-09-16 11:38 | PDOC ---
Progress Note - Pain Clinic Date of Service: DOS: DATE: 09/16/20 TIME: 11:33 Diagnosis: Dx: Lumbar radiculopathy with lumbar degenerative disc disease Compression fracture L3 and L4 History or Present Illness: HPI: 80-year-old female returns to follow-up status post lumbar epidural steroid injection x2. Last seen July 11, 2020 patient reports by 50% improvement after the last injection but was doing better until she fell about 3 weeks ago when she was walking and started the pain up in her back once again patient reports pain in the posterior gluteus low back posterior thighs and calves worse in the low back itself patient reports is a 10 on scale 10 is worse over the past week 9 on average 3 at its least is a 9 today patient reports is unbearable at times on and off in intensity worse with walking standing describes cramping and stabbing in the back shooting and aching in the lower extremities. Patient reports no new motor or sensory deficits no new bowel or bladder incontinence or other complaints still better with sitting or laying down does not awaken her from sleep at night. Physical Exam: VS: Pressure is 117/76 pulse 103 respirations 20 temperature 98.6 F; weight is 206 pounds PE: PHYSICAL EXAMINATION: GENERAL: The patient is awake, alert, oriented, appropriate, very pleasant demeanor, accompanied by her daughter HEENT: Shows normocephalic, atraumatic. Extraocular movements are intact and symmetrical. NECK: Shows anterior throat supple without palpable lymphadenopathy noted. Swallow reflex symmetrical. CHEST: Shows normal on inspection. Breath sounds are clear bilaterally, distant but no rales rhonchi or wheezes auscultated. HEART: Shows S1, S2 clear. No murmurs auscultated. ABDOMEN: Soft, nontender, nondistended, obese. No palpable organomegaly is noted. BACK: Shows spine grossly in the midline. Normal-appearing cervical lordotic curvature. There is slightly increased thoracic kyphosis, some minor flattening of the lumbar lordotic curvature. Lumbar paraspinous muscles show symmetrical on inspection, on palpation shows some moderate tenderness diffusely throughout the upper, middle and lower distribution of the paraspinous muscles without specific trigger points, without radiation of pain. The patient has good rotational motion of the lumbar spine, both laterally as well as extension and flexion without significant difficulty. No tenderness over the spinous processes, sacrum or sacroiliac regions. EXTREMITIES: Lower extremities show deep tendon reflexes 1+ in the patellar and tendo calcaneus tendons. Motor exam is 4 on a scale of 5 with right dorsiflexion, extension, quadriceps and hamstring flexion and 4/5 on the left. Peripheral pulses are 1+ posterior tibial. No peripheral edema is noted bilaterally. Lower extremities are warm and dry to touch, equal in color and appearance. SKIN: Shows warm and dry, good turgor. No edema. No sores, rashes or bruising throughout. Procedure: Procedure: Options were discussed with the patient. Patient chart reviews her current medication regimen updated current review of systems updated today as well. We will proceed with a third in the series lumbar epidural steroid injection with fluoroscopic guidance. Risks were discussed including but not limited to: Bleeding, infection, possibility of epidural hematoma and subsequent neurological compromise, dural puncture, headaches, spinal cord and/or nerve damage, side effects of steroid medication, and poor results regarding pain control. Patient understands and wished to proceed. Patient will return to clinic in approximately 3 weeks for follow-up, was counseled as return appointment activity level and side effects to be aware of. Medication Injected: Med Injected: Procedure is lumbar epidural steroid injection under local anesthetic using sterile prep and drape at the L5-S1 level using C-arm fluoroscopic guidance in both AP and lateral views medications injected is 120 mg Depo-Medrol + 10 mL preservative-free normal saline and 2 mL contrast- condition at discharge is stable patient tolerated procedure well had no complications. Condition at Discharge: Condition at Discharge: Condition at discharge stable, patient tolerated the procedure well and had no complications. ENRIQUE BECERRIL MD Sep 16, 2020 11:38
--- NOTE | 2020-09-16 11:39 | PDOC4 ---
PROCEDURE Procedure Patient was consented for lumbar epidural steroid injection. Risks were dis cussed including but not limited to: Bleeding, infection, possibility of epidural hematoma and subsequent neurological compromise, dural puncture, headaches, spinal cord and/or nerve damage, side effects of steroid medication, and poor results regarding pain control. Patient understands and wished to proceed. Procedure is lumbar epidural steroid injection under local anesthetic using sterile prep and drape at the L5-S1 level using C-arm fluoroscopic guidance in both AP and lateral views medications injected is 120 mg Depo-Medrol + 10 mL preservative-free normal saline and 2 mL contrast- condition at discharge is stable patient tolerated procedure well had no complications. ENRIQUE BECERRIL MD Sep 16, 2020 11:39
== END | disposition home or self-care (01) ==
LOC: PNCL 10:48
PROVIDERS: ATTEND Anesthesiology
DX: M51.16 Intervertebral disc disorders with radiculopathy, lumbar region (principal); M48.56XA Collapsed vertebra, not elsewhere classified, lumbar region, initial encounter for fracture; E78.00 Pure hypercholesterolemia, unspecified; I10 Essential (primary) hypertension; E66.9 Obesity, unspecified; K21.9 Gastro-esophageal reflux disease without esophagitis; M19.90 Unspecified osteoarthritis, unspecified site; J44.9 Chronic obstructive pulmonary disease, unspecified; G47.30 Sleep apnea, unspecified; E11.9 Type 2 diabetes mellitus without complications; F32.9 Major depressive disorder, single episode, unspecified; Z87.891 Personal history of nicotine dependence; Z90.710 Acquired absence of both cervix and uterus; Z98.890 Other specified postprocedural states; Z90.49 Acquired absence of other specified parts of digestive tract; Z79.84 Long term (current) use of oral hypoglycemic drugs; Z79.899 Other long term (current) drug therapy; Z72.89 Other problems related to lifestyle; Z88.1 Allergy status to other antibiotic agents; Z88.8 Allergy status to other drugs, medicaments and biological substances
CPT/HCPCS: 62323; J1030; J1040; Q9965; 77002

== ENCOUNTER → 2020-11-11 | Outpatient (CLI) | payer MEDICARE ==
[~2020-11-11] MED LIST changes: -CALC600T6 PO; +CALC600T60 PO; -IOHEXOL 180 MG/ML 10 ML VIAL. ONE; -methylPREDNISolone ACETATE 40 MG/ML VIAL. ONE; -methylPREDNISolone ACETATE 80 MG/ML VIAL. ONE
[2020-11-11 14:27] LABS: ALBUMIN 3.4 g/dL (3.4-5.0); CALCIUM 8.9 mg/dL (8.5-10.1); CREATININE 1.1 mg/dL (0.6-1.0); TOTAL BILIRUBIN 0.6 mg/dL (0.2-1.0); TOTAL PROTEIN 6.7 g/dL (6.4-8.2)
[2020-11-11 14:28] LABS: CHOLESTEROL/HDL RATIO 2.1
== END ==
LOC: LAB 13:33
PROVIDERS: ATTEND Internal Medicine Cardiovascular Disease
DX: I10 Essential (primary) hypertension (principal); R06.00 Dyspnea, unspecified
CPT/HCPCS: 36415; 80053; 80061; 83721; 83880

== ENCOUNTER → 2020-11-11 | Outpatient (CLI) | payer MEDICARE ==
[~2020-11-11] MED LIST changes: +IOHEXOL 180 MG/ML 10 ML VIAL. ONE; +methylPREDNISolone ACETATE 40 MG/ML VIAL. ONE; +methylPREDNISolone ACETATE 80 MG/ML VIAL. ONE
--- NOTE | 2020-11-11 12:45 | PDOC ---
Progress Note - Pain Clinic Date of Service: DOS: DATE: 11/11/20 TIME: 12:43 Diagnosis: Dx: Lumbar radiculopathy lumbar degenerative disc disease Compression fracture L3 and L4 History or Present Illness: HPI: 80-year-old female returns for follow-up status post lumbar epidural steroid injections x3 most recently seen September 16, 2020 patient very well with about a 50% improvement after the last injection and is reset for additional injection today would like to proceed. Patient reports pain increasing in the low back bilateral lower extremities mostly the posterior gluteus posterior thighs and across the low back bilaterally patient reports tingling cramping burning aching and sharp shooting in the legs with standing and weightbearing better with sitting or laying down generally does not awaken her from sleep at night patient reports her pain is a 10 on scale 10 is worst over the past week 7 on average 3 days least is a 7 today. Patient reports no new motor or sensory deficits no bladder complaints. Physical Exam: VS: Blood pressure is 123/61 pulse 87 respirations 16 temperature 97.7 F weight is 202 pounds PE: PHYSICAL EXAMINATION: GENERAL: The patient is awake, alert, oriented, appropriate, very pleasant demeanor HEENT: Shows normocephalic, atraumatic. Extraocular movements are intact and symmetrical. Oral cavity: Mucous membranes moist and pink. Dentition is intact. NECK: Shows anterior throat supple without palpable lymphadenopathy noted. Swallow reflex symmetrical. CHEST: Shows normal on inspection. Breath sounds are clear bilaterally, distant but no rales or rhonchi. HEART: Shows S1, S2 clear. No murmurs auscultated. ABDOMEN: Soft, nontender, nondistended, obese. No palpable organomegaly is noted. No rebound or guarding demonstrated. BACK: Shows spine grossly in the midline. Normal-appearing cervical lordotic curvature. There is slightly increased thoracic kyphosis, some minor flattening of the lumbar lordotic curvature. Lumbar paraspinous muscles show symmetrical on inspection, on palpation shows some moderate tenderness diffusely throughout the upper, middle and lower distribution of the paraspinous muscles without specific trigger points, without radiation of pain. The patient has good rotational motion of the lumbar spine, both laterally as well as extension and flexion without significant difficulty. EXTREMITIES: Lower extremities show deep tendon reflexes 1+ in the patellar and tendo calcaneus tendons. Motor exam is 4 on a scale of 5 with right sergio siflexion, extension, quadriceps and hamstring flexion and 4/5 on the left. Peripheral pulses are 1+ posterior tibial. No peripheral edema is noted bilaterally. Lower extremities are warm and dry. SKIN: Shows warm and dry, good turgor. No edema. No sores, rashes or bruising throughout. Procedure: Procedure: Options were discussed with the patient. Patient chart reviews her current medication regimen updated current review of systems updated today as well. We will proceed with a first in the series lumbar epidural steroid injection with fluoroscopic guidance. Risks were discussed including but not limited to: Bleeding, infection, possibility of epidural hematoma and subsequent neurological compromise, dural puncture, headaches, spinal cord and/or nerve damage, side effects of steroid medication, and poor results regarding pain control. Patient understands and wished to proceed. Patient will return to the clinic in approximately 2 weeks for follow-up, was counseled return appointment, activity level, and side effects to be aware of. Medication Injected: Med Injected: Procedure is lumbar epidural steroid injection under local anesthetic using sterile prep and drape at the L5-S1 level using C-arm fluoroscopic guidance in both AP and lateral views medications injected is 120 mg Depo-Medrol +10mL preservative-free normal saline and 2 mL contrast- condition at discharge is stable patient tolerated procedure well had no complications. Condition at Discharge: Condition at Discharge: Condition at discharge stable, patient already procedure well and had no complications. ENRIQUE BECERRIL MD November 11, 2020 12:45
--- NOTE | 2020-11-11 12:46 | PDOC4 ---
PROCEDURE Procedure Patient was consented for lumbar epidural steroid injection. Risks were dis cussed including but not limited to: Bleeding, infection, possibility of epidural hematoma and subsequent neurological compromise, dural puncture, headaches, spinal cord and/or nerve damage, side effects of steroid medication, and poor results regarding pain control. Patient understands and wished to proceed. Procedure is lumbar epidural steroid injection under local anesthetic using sterile prep and drape at the L5-S1 level using C-arm fluoroscopic guidance in both AP and lateral views medications injected is 120 mg Depo-Medrol +10mL preservative-free normal saline and 2 mL contrast- condition at discharge is stable patient tolerated procedure well had no complications. ENRIQUE BECERRIL MD November 11, 2020 12:46
== END | disposition home or self-care (01) ==
LOC: PNCL 11:07
PROVIDERS: ATTEND Anesthesiology
DX: M51.16 Intervertebral disc disorders with radiculopathy, lumbar region (principal); M48.56XA Collapsed vertebra, not elsewhere classified, lumbar region, initial encounter for fracture; I10 Essential (primary) hypertension; E78.00 Pure hypercholesterolemia, unspecified; J44.9 Chronic obstructive pulmonary disease, unspecified; G47.30 Sleep apnea, unspecified; E66.9 Obesity, unspecified; E11.9 Type 2 diabetes mellitus without complications; F32.9 Major depressive disorder, single episode, unspecified; K21.9 Gastro-esophageal reflux disease without esophagitis; Z90.710 Acquired absence of both cervix and uterus; Z98.890 Other specified postprocedural states; Z79.899 Other long term (current) drug therapy; Z87.891 Personal history of nicotine dependence; Z72.89 Other problems related to lifestyle; Z88.1 Allergy status to other antibiotic agents; Z88.8 Allergy status to other drugs, medicaments and biological substances
CPT/HCPCS: 62323; J1030; J1040; Q9965

== ENCOUNTER → 2020-12-14 | Outpatient (CLI) | payer MEDICARE ==
[~2020-12-14] MED LIST changes: -IOHEXOL 180 MG/ML 10 ML VIAL. ONE; -OMEP40CA45 PO; +OMEP40CA7 PO; -methylPREDNISolone ACETATE 40 MG/ML VIAL. ONE; -methylPREDNISolone ACETATE 80 MG/ML VIAL. ONE
--- NOTE | 2020-12-14 11:39 | RAD ---
MR#: [id number] Date of Study: 12/14/2020 Ordering Physician: BERTO NAJERA, Referring Physician: BERTO NAJERA, Tech: Maxine Delacruz, MESSIMS, RVT, RTR APPROVED REPORT Patient Location: OUT-PATIENT Indications PAD VELOCITY AND DOPPLER WAVEFORM ANALYSIS RIGHT cm/secWaveformSeverity LEFT cm/secWaveform Severity pCFA 192.8pCFA 170.1 dCFA 147.8dCFA 103.0 Prof Fem Art. 110.5Prof Fem Art. 82.4 Fem Art Prox. 119.5Fem Art Prox. 143.4 Fem Art Mid. 66.6Fem Art Mid. 127.7 Fem Art Dist. 65.7Fem Art Dist. 95.3 Pop Art(AK) 57.1Pop Art(AK) 62.0 VAC PRESS OPERATOR Prox. 81.7PTA Prox. 87.9 VAC PRESS OPERATOR Dist. 60.7PTA Dist. 59.3 Per Art Prox. 68.7Per Art Prox. 51.3 BE Prox. 86.0ATA Prox. 69.4 DPA 80.3DPA 81.7 Findings Grayscale images of the bilateral lower extremity arterial vessels demonstrate mild diffuse atheroscl erosis. There are mildly elevated velocities in the bilateral common femoral arteries but otherwise no significant stenosis is noted with three-vessel runoff below the knee. Critical Notification Critical Value: No <Conclusion> 1. No significant lower extremity arterial disease bilaterally with mostly triphasic and biphasic wa veforms and three-vessel runoff. Signed by : Berto Najera, Electronically Approved : 12/14/2020 11:38:56
--- NOTE | 2020-12-14 11:40 | RAD ---
MR#: [id number] Date of Study: 12/14/2020 Ordering Physician: BERTO NAJERA, Referring Physician: BERTO NAJERA, Tech: Maxine Delacruz RDMS, RVT, RTR APPROVED REPORT Patient Location: OUT-PATIENT Exam Type: Ankle to Brachial Index Indications PAD Pressures/Indices RightABI LeftABI Brachial 369ezOu9.22Brachial 490eaKa6.34 Ankle(PT) 147mmHgAnkle(PT) 157mmHg Ankle(DP) 150mmHgAnkle(DP) 164mmHg Findings Mildly elevated bilateral IRIS consistent with calcification Critical Notification Critical Value: No <Conclusion> 1. Elevated IRIS consistent with calcification. Signed by : Berto Najera, Electronically Approved : 12/14/2020 11:39:32
--- NOTE | 2020-12-14 11:41 | RAD ---
MR#: [id number] Date of Study: 12/14/2020 Ordering Physician: BERTO NAJERA, Referring Physician: BERTO NAJERA, Tech: Maxine Delacruz RDMS, RVT, RTR APPROVED REPORT Patient Location : OUT-PATIENT Indications Venous Insufficiency Findings Grayscale images of the bilateral saphenofemoral junctions and limited images of the bilateral greate r and lesser saphenous veins did not reveal any obvious evidence of thrombus. No significant reflux is noted in the bilateral greater and lesser saphenous veins. The right great saphenous vein measures 3.9 mm and the left great saphenous vein measures 3.4 mm. The left great sap henous vein is approximately 2 mm and the right great saphenous vein is approximately 2.1 mm. Critical Notification Critical Value: No <Conclusion> 1. Negative for reflux in the bilateral greater and lesser saphenous veins Signed by : eBrto Najera, Electronically Approved : 12/14/2020 11:40:45
--- NOTE | 2020-12-14 14:35 | CARD ---
MR#: [id number] Date of Study: 12/14/2020 Ordering Physician: BERTO NAJERA, Referring Physician: BERTO NAJERA, Tech: Sherman Valenzuela [facility] APPROVED REPORT EXAM: Two-dimensional and M-mode echocardiogram with Doppler and color Doppler. Other Information Quality : GoodHR: 88bpm Rhythm : NSR INDICATION Pulmonary Hypertention RISK FACTORS Hypertension Obesity Hyperlipidemia 2D DIMENSIONS Left Atrium(2D)3.9 (1.6-4.0cm)IVSd1.0 (0.7-1.1cm) Aortic Root(2D)3.2 (2.0-3.7cm)LVDd4.6 (3.9-5.9cm) LVOT Diameter1.8 (1.8-2.4cm)PWd1.1 (0.7-1.1cm) LA Aztorv33 (18-58mL)LVDs2.2 (2.5-4.0cm) FS (%) 52.7 %SV80.1 ml LVEF(%)83.8 (>50%) Aortic Valve AoV Peak Cameron.197.6cm/sAoV VTI37.1cm AO Peak GR.15.6mmHgLVOT Peak Cameron.119.9cm/s AO Mean GR.8mmHgAVA (VMAX)1.54cm2 Mitral Valve MV E Xxzjsfud636.1cm/sMV E Peak Gr.4mmHg MV DECEL [id number] A Pyhhxeyy67.9cm/s MV E Mean Gr.2mmHgE/A Ratio1.3 Pulmonary Valve PV Peak Edexmwjq611.6cm/s Tricuspid Valve TR P. Mrialvbo312bv/sTR Peak Gr.41mmHg Pulmonary Vein S1 Ivwxdmka30.5cm/sD2 Fveiwvze23.9cm/s PVa lnncwohq43aqvh LEFT VENTRICLE The left ventricle is normal size. There is normal left ventricular wall thickness. The left ventricu lar systolic function is normal. The ejection fraction is 60-65%. There is normal LV segmental wall m otion. The left ventricular diastolic function and filling is normal for age. No left ventricle throm bus noted on this study. There is no ventricular septal defect visualized. RIGHT VENTRICLE The right ventricle is normal size. There is normal right ventricular wall thickness. The right ventr icular systolic function is normal. ATRIA The left atrium is mildly dilated. The right atrium is mildly dilated. The interatrial septum is inta ct with no evidence for an atrial septal defect or patent foramen ovale as noted on 2-D or Doppler im aging. AORTIC VALVE The aortic valve is mildly thickened but opens well. Doppler and Color Flow revealed trace aortic reg urgitation. There is no significant aortic valvular stenosis. There is no aortic valvular vegetation. MITRAL VALVE The mitral valve is normal in structure and function. There is no evidence of mitral valve prolapse. There is no mitral valve stenosis. Doppler and Color-flow revealed trace mitral regurgitation. TRICUSPID VALVE The tricuspid valve is normal in structure and function. Doppler and Color Flow revealed trace to mil d tricuspid regurgitation. There is no tricuspid valve prolapse or vegetation. There is no tricuspid valve stenosis. PULMONIC VALVE The pulmonary valve is normal in structure and function. Doppler and Color Flow revealed no pulmonic valvular regurgitation. There is no pulmonic valvular stenosis. GREAT VESSELS The aortic root is normal in size. The ascending aorta is norm The pulmonary artery is normal. The IV C is normal in size and collapses >50% with inspiration. PERICARDIAL EFFUSION There is no pleural effusion. There is no evidence of significant pericardial effusion. Critical Notification Critical Value: No <Conclusion> The left ventricular systolic function is normal. The ejection fraction is 60-65%. There is normal LV segmental wall motion. Trace aortic regurgitation. Trace mitral regurgitation. Trace to mild tricuspid regurgitation. There is no evidence of significant pericardial effusion. Signed by : Jacek Oneil, Electronically Approved : 12/14/2020 14:34:36
== END ==
LOC: US 09:07
PROVIDERS: ATTEND Internal Medicine Cardiovascular Disease
DX: I70.203 Unspecified atherosclerosis of native arteries of extremities, bilateral legs (principal); I27.0 Primary pulmonary hypertension; I87.2 Venous insufficiency (chronic) (peripheral)
CPT/HCPCS: 93306; 93922; 93925; 93970

== ENCOUNTER → 2021-01-12 | Outpatient (CLI) | payer MEDICARE ==
[~2021-01-12] MED LIST changes: +DOXY100C3 PO; -DULO60CA6 PO; +DULO60CA7 PO; +IOHEXOL 180 MG/ML 10 ML VIAL. ONE; +LEVO750T5 PO; +methylPREDNISolone ACETATE 40 MG/ML VIAL. ONE; +methylPREDNISolone ACETATE 80 MG/ML VIAL. ONE
--- NOTE | 2021-01-12 13:53 | PDOC ---
Progress Note - Pain Clinic Date of Service: DOS: DATE: 01/12/21 TIME: 13:49 Diagnosis: Dx: Lumbar radiculopathy with lumbar degenerative disc disease Compression fracture L3 and L4 History or Present Illness: HPI: 80-year-old female returns for follow-up status post lumbar epidural injection x1. Patient reports about 75% improvement in the low back and bilateral lower extremity pain. Patient reports that about 1 month and half the pain is reduced significantly she is increasing her activity greater ease and comfort sitting more comfortably for longer periods of time walking with some mild greater ease and comfort as well she is still unstable on her feet and uses a wheelchair when she can. Patient reports he did have 1 spell at home where she fell and increased the pain in her back as well as in her bilateral knees but this was about a month ago and has been getting better after she had a new medication of extra strength Tylenol. Patient is no longer taking it as the pain is resolved fairly well. Patient reports her pain is a 10 on scale 10 is worse over the past week 9 on average 4 to sleep and is a 7 today patient reports tingling burning cramping aching tight and shooting in the low back bilateral lower extremities posterior gluteus posterior thighs posterior calves at times but with sitting or laying down generally does not awaken her from sleep at night but worse with walking standing and transferring getting up from her chair or getting out of bed. Patient reports no other concerns at this time. Physical Exam: VS: Blood pressure is 134/79 pulse 80 respirations 18 temperature 98.4 F height is 5 feet 2 inches weight is 199 pounds PE: PHYSICAL EXAMINATION: GENERAL: The patient is awake, alert, oriented, appropriate, very pleasant in demeanor, patient accompanied by her daughter. HEENT: Shows normocephalic, atraumatic. Extraocular movements are intact and symmetrical. NECK: Shows anterior throat supple without palpable lymphadenopathy noted. Swallow reflex symmetrical. CHEST: Shows normal on inspection. Breath sounds are clear bilaterally, distant but no rales or rhonchi. HEART: Shows S1, S2 clear. No murmurs auscultated. ABDOMEN: Soft, nontender, nondistended, obese. BACK: Shows spine grossly in the midline. Normal-appearing cervical lordotic curvature. There is slightly increased thoracic kyphosis, some minor flattening of the lumbar lordotic curvature. Lumbar paraspinous muscles show symmetrical on inspection, on palpation shows some moderate tenderness diffusely throughout the upper, middle and lower distribution of the paraspinous muscles, but without specific trigger points, without radiation of pain. The patient has good rotational motion of the lumbar spine, both laterally as well as extension and flexion without significant difficulty. No tenderness over the spinous processes, sacrum or sacroiliac regions. EXTREMITIES: Lower extremities show deep tendon reflexes 1 in the patellar and tendo calcaneus tendons. Motor exam is 4 on a scale of 5 with right dorsiflexion, extension, quadriceps and hamstring flexion and 4/5 on the left. Peripheral pulses are 1 posterior tibial. No peripheral edema is noted bilaterally. Lower extremities are warm and dry. SKIN: Shows warm and dry, good turgor. No edema. No sores, rashes or bruising throughout. Procedure: Procedure: Options were discussed with patient. Patient's old chart was reviewed with her current medication regimen updated current review of systems updated today as well. We will proceed with a second in the series lumbar epidural steroid ejections today with fluoroscopic guidance. Risks were discussed including but not limited to: Bleeding, infection, possibility of epidural hematoma and subsequent neurological compromise, dural puncture, headaches, spinal cord and/or nerve damage, side effects of steroid medication, and poor results regarding pain control. Patient understands and wished to proceed. Patient will return to clinic in approximate 2 weeks for follow-up, was counseled as return appointment activity level and side effects to be aware of. Medication Injected: Med Injected: Procedure is lumbar epidural steroid injection under local anesthetic using sterile prep and drape at the L5-S1 level using C-arm fluoroscopic guidance in both AP and lateral views medications injected is 120 mg Depo-Medrol +10mL pr eservative-free normal saline and 2 mL contrast- condition at discharge is stable patient tolerated procedure well had no complications. Condition at Discharge: Condition at Discharge: Condition at discharge stable, patient alert the procedure well and had no complications. ENRIQUE BECERRIL MD Jan 12, 2021 13:52
--- NOTE | 2021-01-12 13:53 | PDOC4 ---
Procedure Note: Procedure Note: Patient was consented for lumbar epidural steroid injection. Risks were discussed including but not limited to: Bleeding, infection, possibility of epidural hematoma and subsequent neurological compromise, dural puncture, headaches, spinal cord and/or nerve damage, side effects of steroid medication, and poor results regarding pain control. Patient understands and wished to proceed. Procedure is lumbar epidural steroid injection under local anesthetic using sterile prep and drape at the L5-S1 level using C-arm fluoroscopic guidance in both AP and lateral views medications injected is 120 mg Depo-Medrol +10mL preservative-free normal saline and 2 mL contrast- condition at discharge is stable patient tolerated procedure well had no complications. ENRIQUE BECERRIL MD Jan 12, 2021 13:53
== END | disposition home or self-care (01) ==
LOC: PNCL 13:05
PROVIDERS: ATTEND Anesthesiology
DX: M51.16 Intervertebral disc disorders with radiculopathy, lumbar region (principal); M48.56XA Collapsed vertebra, not elsewhere classified, lumbar region, initial encounter for fracture; I10 Essential (primary) hypertension; E78.00 Pure hypercholesterolemia, unspecified; J44.9 Chronic obstructive pulmonary disease, unspecified; K21.9 Gastro-esophageal reflux disease without esophagitis; G47.30 Sleep apnea, unspecified; E11.9 Type 2 diabetes mellitus without complications; E66.9 Obesity, unspecified; F32.9 Major depressive disorder, single episode, unspecified; Z90.49 Acquired absence of other specified parts of digestive tract; Z90.710 Acquired absence of both cervix and uterus; Z98.890 Other specified postprocedural states; Z87.891 Personal history of nicotine dependence; Z88.1 Allergy status to other antibiotic agents; Z88.8 Allergy status to other drugs, medicaments and biological substances; Z72.89 Other problems related to lifestyle
CPT/HCPCS: 62323; J1030; J1040; Q9965

== ENCOUNTER → 2021-03-16 | Outpatient (CLI) | payer MEDICARE ==
[~2021-03-16] MED LIST changes: -DOXY100C3 PO; +DULO60CA6 PO; -DULO60CA7 PO; -LEVO750T5 PO; -methylPREDNISolone ACETATE 40 MG/ML VIAL. ONE
--- NOTE | 2021-03-16 11:04 | PDOC4 ---
Procedure Note: ICD 10 Code: ICD 10 Code: M54.17 M51.87 Procedure Note: Patient was consented for lumbar epidural steroid injection with fluoroscopic guidance. Risks were discussed including but not limited to: Bleeding, infection, possibility of epidural hematoma and subsequent neurological compromise, dural puncture, headaches, spinal cord and/or nerve damage, side effects of steroid medication, and poor results regarding pain control. Patient understands and wished to proceed. Procedure is lumbar epidural steroid injection under local anesthetic using sterile prep and drape at the L5-S1 level using C-arm fluoroscopic guidance in both AP and lateral views medications injected is 120 mg Depo-Medrol +10mL preservative-free normal saline and 2 mL contrast- condition at discharge is stable patient tolerated procedure well had no complications. ENRIQUE BECERRIL MD Mar 16, 2021 11:04
--- NOTE | 2021-03-16 11:04 | PDOC ---
Progress Note - Pain Clinic Date of Service: DOS: DATE: 03/16/21 TIME: 11:00 Diagnosis: Dx: Lumbar radiculopathy lumbar degenerative disc disease Compression fracture L3 and L4 History or Present Illness: HPI: 80-year-old female returns for follow-up status post lumbar epidural straight injection x2 last seen January 12, 2021. Patient reports he did very well about 75% improvement for the first month or so of the pain returned in the low back and the right greater than left lower extremity. Patient reports is aching and sharp shooting in the right leg with aching and now some on the left side which is new for her as it was always on the right side previously patient reports better with sitting down or lying down generally does not awaken her from sleep at night but is beginning much more noticeable with transferring from sitting to standing position and trying to ambulate. Patient is still very unsteady on her feet but after the last injection reports he was doing much better with distance walking doing household activities travel with greater ease and comfort and sleeping well is presently. Patient reports her pain a 10 on scale 10 is worst in the last week 7 on average to its least is a 6 today. Patient reports the left leg feels more sharp were more aching and dull on the right leg again this is new but only traveling to the posterior gluteus and posterior thigh on the left side with the right side is traveling into the posterior gluteus thigh and into the lower leg to the ankle. Patient reports no bowel or bladder inconti nence. Physical Exam: VS: Blood pressure is 140/66 pulse 93 respirations 18 temperature 98.2 F, height is 5 foot 2 inches weight is 199 pounds PE: PHYSICAL EXAMINATION: GENERAL: The patient is awake, alert, oriented, appropriate, very pleasant in demeanor HEENT: Shows normocephalic, atraumatic. Extraocular movements are intact and symmetrical. Oral cavity: Mucous membranes moist and pink. NECK: Shows anterior throat supple without palpable lymphadenopathy noted. Swallow reflex symmetrical. CHEST: Shows normal on inspection. Breath sounds are clear bilaterally, no rales rhonchi or wheezes auscultated. HEART: Shows S1, S2 clear. No murmurs auscultated. ABDOMEN: Soft, nontender, nondistended, obese. No palpable organomegaly is noted. BACK: Shows spine grossly in the midline. Normal-appearing cervical lordotic curvature. There is increased thoracic kyphosis, some flattening of the lumbar lordotic curvature. Lumbar paraspinous muscles show symmetrical on inspection, on palpation shows some moderate tenderness diffusely throughout the upper, middle and lower distribution of the paraspinous muscles without specific trigger points, without radiation of pain. The patient has good rotational motion of the lumbar spine, both laterally as well as extension and flexion without significant difficulty. No tenderness over the spinous processes, sacrum or sacroiliac regions. EXTREMITIES: Lower extremities show deep tendon reflexes 1 in the patellar and tendo calcaneus tendons. Motor exam is 4 on a scale of 5 with right dorsiflexion, extension, quadriceps and hamstring flexion and 4/5 on the left. Peripheral pulses are 1 posterior tibial. No peripheral edema is noted bilaterally. Lower extremities are warm and dry. SKIN: Shows warm and dry, good turgor. No edema. No sores, rashes or bruising throughout. Procedure: Procedure: Options were discussed with the patient. Patient chart was reviewed as her current medication regimen updated current review of systems updated today as well. We will proceed with a lumbar epidural steroid injection today with fluoroscopic guidance. Risks were discussed including but not limited to: Bleeding, infection, possibility of epidural hematoma and subsequent neurological compromise, dural puncture, headaches, spinal cord and/or nerve damage, side effects of steroid medication, and poor results regarding pain control. Patient understands and wished to proceed. Patient will return to clinic in approximately 2 weeks for follow-up, was counseled as return appointment, activity level, and side effects to be aware of. Medication Injected: Med Injected: Procedure is lumbar epidural steroid injection under local anesthetic using sterile prep and drape at the L4-5 level using C-arm fluoroscopic guidance in both AP and lateral views medications injected is 120 mg Depo-Medrol +10mL preservative-free normal saline and 2 mL contrast- condition at discharge is stable patient tolerated procedure well had no complications. Condition at Discharge: Condition at Discharge: Condition at discharge stable, patient already the procedure well and had no complications. ENRIQUE BECERRIL MD Mar 16, 2021 11:04
== END | disposition home or self-care (01) ==
LOC: PNCL 10:15
PROVIDERS: ATTEND Anesthesiology
DX: M51.16 Intervertebral disc disorders with radiculopathy, lumbar region (principal); M48.56XA Collapsed vertebra, not elsewhere classified, lumbar region, initial encounter for fracture; I10 Essential (primary) hypertension; E78.00 Pure hypercholesterolemia, unspecified; J44.9 Chronic obstructive pulmonary disease, unspecified; G47.30 Sleep apnea, unspecified; K21.9 Gastro-esophageal reflux disease without esophagitis; E11.9 Type 2 diabetes mellitus without complications; F32.9 Major depressive disorder, single episode, unspecified; Z90.710 Acquired absence of both cervix and uterus; Z98.890 Other specified postprocedural states; Z90.49 Acquired absence of other specified parts of digestive tract; Z87.891 Personal history of nicotine dependence; Z79.899 Other long term (current) drug therapy; Z88.1 Allergy status to other antibiotic agents; Z88.8 Allergy status to other drugs, medicaments and biological substances
CPT/HCPCS: 62323; J1040; Q9965

== ENCOUNTER → 2021-05-23 | Outpatient (CLI) | payer MEDICARE ==
[~2021-05-23] MED LIST changes: -DULO60CA6 PO; +DULO60CA7 PO; +methylPREDNISolone ACETATE 40 MG/ML VIAL. ONE
--- NOTE | 2021-05-23 10:57 | PDOC ---
Progress Note - Pain Clinic Date of Service: DOS: DATE: 05/23/21 TIME: 10:54 Diagnosis: Dx: Lumbar radiculopathy with lumbar degenerative disc disease and lumbar compression fracture L3-4 History or Present Illness: HPI: 81-year-old female patient returns for follow-up status post lumbar epidural steroid injection last seen March 16, 2021 patient very well about 75% improvement after the last injection with the pain returning in the low back and bilateral lower extremities patient reports it is now more on the front of the legs than the back of the legs as well but mostly on the back is her chief complaint patient reports a new pain on the front is been noticeable for about 3 weeks worse with walking standing and changing position especially when getting up from a seated position but not when sitting down from a standing position patient reports she is doing much better with sitting or laying down generally has no pain at night does not awaken her from sleep patient reports initially doing much better distance walking doing household activities travel with greater ease and comfort but still fairly limited as far as her ambulatory ability. Patient rates her pain is a 10 on scale 10 is worse over the past week 8 on average 3 its least and is an 8 today patient ports dull and tight in the back shooting the legs stabbing consistency as well and on the front of the thighs is also burning patient reports is on and off intensity again better with sitting or laying down worse with standing and weightbearing. Patient reports no bowel or bladder incontinence changes. Physical Exam: VS: Blood pressure is 114/78 pulse 94 respirations 18 temperature is 98.2 F height 5 feet 2 inches weight is 199 pounds PE: PHYSICAL EXAMINATION: GENERAL: The patient is awake, alert, oriented, appropriate, very pleasant in demeanor. Patient companied by her daughter HEENT: Shows normocephalic, atraumatic. Extraocular movements are intact and symmetrical. Oral cavity: Mucous membranes moist and pink. NECK: Shows anterior throat supple without palpable lymphadenopathy noted. Swallow reflex symmetrical. CHEST: Shows normal on inspection. Breath sounds are clear bilaterally, no rales or rhonchi. HEART: Shows S1, S2 clear. No murmurs. ABDOMEN: Soft, nontender, nondistended, obese. No palpable organomegaly is noted. BACK: Shows spine grossly in the midline. Normal-appearing cervical lordotic curvature. There is increased thoracic kyphosis, flattening of the lumbar lordotic curvature. Lumbar paraspinous muscles show symmetrical on inspection, on palpation shows some moderate tenderness diffusely throughout the upper, m iddle and lower distribution of the paraspinous muscles without specific trigger points, without radiation of pain. The patient has good rotational motion of the lumbar spine, both laterally as well as extension and flexion without significant difficulty. No tenderness over the spinous processes, sacrum or sacroiliac regions. EXTREMITIES: Lower extremities show deep tendon reflexes 1 in the patellar and tendo calcaneus tendons. Motor exam is 4 on a scale of 5 with right dorsiflexion, extension, quadriceps and hamstring flexion and 4/5 on the left. Peripheral pulses are 1+ posterior tibial. No peripheral edema is noted bilaterally. Lower extremities are warm and dry. SKIN: Shows warm and dry, good turgor. No edema. No sores, rashes or bruising throughout. Procedure: Procedure: Options were discussed with the patient. Patient chart was reviewed as her current medication regimen updated current review of systems updated today as well. We will proceed with a lumbar epidural steroid injection today with fluoroscopic guidance risks were discussed including but not limited to: Bleeding, infection, possibility of epidural hematoma and subsequent neurological compromise, dural puncture, headaches, spinal cord and/or nerve damage, side effects of steroid medication, and poor results regarding pain control. Patient understands and wished to proceed. Patient will return to clinic in approximately 2 weeks for follow-up, was counseled return appointment, [place], and side effect to be aware of. Medication Injected: Med Injected: Procedure is lumbar epidural steroid injection under local anesthetic using sterile prep and drape at the L5-S1 level using C-arm fluoroscopic guidance in both AP and lateral views medications injected is 120 mg Depo-Medrol +10mL preservative-free normal saline and 2 mL contrast- condition at discharge is stable patient tolerated procedure well had no complications. Condition at Discharge: Condition at Discharge: Condition at discharge is stable, patient tolerated procedure well and had no complications ENRIQUE BECERRIL MD May 23, 2021 10:57
--- NOTE | 2021-05-23 10:58 | PDOC4 ---
Procedure Note: ICD 10 Code: ICD 10 Code: M54.17 M51.87 Procedure Note: Patient was consented for lumbar epidural steroid injection with fluoroscopic guidance. Risks were discussed including but not limited to: Bleeding, infection, possibility of epidural hematoma and subsequent neurological compromise, dural puncture, headaches, spinal cord and/or nerve damage, side effects of steroid medication, and poor results regarding pain control. Patient understands and wished to proceed. Procedure is lumbar epidural steroid injection under local anesthetic using sterile prep and drape at the L5-S1 level using C-arm fluoroscopic guidance in both AP and lateral views medications injected is 120 mg Depo-Medrol +10mL preservative-free normal saline and 2 mL contrast- condition at discharge is stable patient tolerated procedure well had no complications. ENRIQUE BECERRIL MD May 23, 2021 10:58
== END | disposition home or self-care (01) ==
LOC: PNCL 10:16
PROVIDERS: ATTEND Anesthesiology
DX: M51.16 Intervertebral disc disorders with radiculopathy, lumbar region (principal); M48.56XA Collapsed vertebra, not elsewhere classified, lumbar region, initial encounter for fracture; I10 Essential (primary) hypertension; E78.00 Pure hypercholesterolemia, unspecified; J44.9 Chronic obstructive pulmonary disease, unspecified; G47.30 Sleep apnea, unspecified; K21.9 Gastro-esophageal reflux disease without esophagitis; M19.90 Unspecified osteoarthritis, unspecified site; E66.9 Obesity, unspecified; E11.9 Type 2 diabetes mellitus without complications; F32.9 Major depressive disorder, single episode, unspecified; Z87.891 Personal history of nicotine dependence; Z79.84 Long term (current) use of oral hypoglycemic drugs; Z79.899 Other long term (current) drug therapy; Z90.49 Acquired absence of other specified parts of digestive tract; Z98.890 Other specified postprocedural states; Z88.1 Allergy status to other antibiotic agents; Z88.8 Allergy status to other drugs, medicaments and biological substances
CPT/HCPCS: 62323; J1030; J1040; Q9965

== ENCOUNTER → 2021-08-01 | Outpatient (CLI) | payer MEDICARE ==
[~2021-08-01] MED LIST changes: +DOXY100C3 PO; +LEVO750T5 PO; -methylPREDNISolone ACETATE 40 MG/ML VIAL. ONE
--- NOTE | 2021-08-01 14:41 | PDOC ---
Progress Note - Pain Clinic Date of Service: DOS: DATE: 08/01/21 TIME: 14:37 Diagnosis: Dx: Lumbar radiculopathy with lumbar degenerative disc disease Compression fracture L3 and L4 History or Present Illness: HPI: 81-year-old female returns for follow-up status post lumbar epidural steroid injection x1 months May 23, 2021. Patient reports he did very well about 50% improvement for about 6 weeks pain returning on the low back and bilateral lower extremities posterior gluteus posterior thighs and in the back itself most significantly patient reports initially he was do much better with distance walking and doing household activities traveling with greater ease and comfort in transferring from chair to standing and vice versa with greater ease as well patient reports she still sleeps fairly well does not generally awaken her from sleep most noticeable now when she is weightbearing or changing positions from standing to sitting or vice versa patient reports is a 10 on scale 10 is worst over the past week 6 on average activity [place] is a 6 today patient scribes it as stabbing on and off can be constant with walking and standing also dull and tight alternating in the back itself and some in the mid back with radiation. Patient is wearing a knee brace on her right knee today reports significant pain with weightbearing in the knees bilaterally more on the right than the left has had reconstructive surgery on both knees in the past as well. We discussed patient's arthritic condition and after review of her medications we will add new medication of meloxicam 15 mg once daily. Patient was given instruction as well side effects beware specially stomach upset with the medication. Patient will trial this for the next 4 weeks and see if this makes a significant improvement in the arthritic pains in her back and also bilateral knees. Physical Exam: VS: Blood pressure is 120/70 pulse 96 respirations 18 temperature 98.3 F height 5 feet 2 inches weight 194 pounds PE: PHYSICAL EXAMINATION: GENERAL: The patient is awake, alert, oriented, appropriate, very pleasant in demeanor HEENT: Shows normocephalic, atraumatic. Extraocular movements are intact and symmetrical. Oral cavity: Mucous membranes moist and pink. NECK: Shows anterior throat supple without palpable lymphadenopathy noted. Swallow reflex symmetrical. CHEST: Shows normal on inspection. Breath sounds are clear bilaterally, distant but no rales or rhonchi. HEART: Shows S1, S2 clear. No murmurs auscultated. ABDOMEN: Soft, nontender, nondistended, obese. No palpable organomegaly is noted. BACK: Shows spine grossly in the midline. Normal-appearing cervical lordotic curvature. There is moderately increased thoracic kyphosis, some flattening of the lumbar lordotic curvature. Lumbar paraspinous muscles show symmetrical on inspection, on palpation shows some moderate tenderness diffusely throughout the upper, middle and lower distribution of the paraspinous muscles without specific trigger points, without radiation of pain. The patient has good rotational motion of the lumbar spine, both laterally as well as extension and flexion without significant difficulty. No tenderness over the spinous processes, sacrum or sacroiliac regions. EXTREMITIES: Lower extremities show deep tendon reflexes 1+ in the patellar and tendo calcaneus tendons. Motor exam is 4 on a scale of 5 with right dorsiflexion, extension, quadriceps and hamstring flexion and 4/5 on the left. Peripheral pulses are 1+ posterior tibial. No peripheral edema is noted bilaterally. Lower extremities are warm and dry to touch, equal in color and appearance. SKIN: Shows warm and dry, good turgor. No edema. No sores, rashes or bruising throughout. Procedure: Procedure: Options discussed with the patient. Patient chart was reviewed as her current medication regimen updated current review of systems updated today as well. We will proceed with a lumbar epidural steroid injection today with fluoroscopic guidance. Risks were discussed including but not limited to: Bleeding, infection, possibility of epidural hematoma and subsequent neurological compromise, dural puncture, headaches, spinal cord and/or nerve damage, side effects of steroid medication, and poor results regarding pain control. Patient understands and wished to proceed. She will return to the clinic in approximately 2 weeks for follow-up, was counseled as to return appointment, activity level, and side effects to be aware of. Again, patient will start new medication of meloxicam 15 mg daily with instructions and side effects to be aware of discussed. Medication Injected: Med Injected: Procedure is lumbar epidural steroid injection under local anesthetic using sterile prep and drape at the L5-S1 level using C-arm fluoroscopic guidance in both AP and lateral views medications injected is 120 mg Depo-Medrol +10mL pres ervative-free normal saline and 2 mL contrast- condition at discharge is stable patient tolerated procedure well had no complications. Condition at Discharge: Condition at Discharge: Condition at discharge stable, paced tolerated procedure well and no complications ENRIQUE BECERRIL MD Aug 01, 2021 14:41
--- NOTE | 2021-08-01 14:42 | PDOC4 ---
Procedure Note: ICD 10 Code: ICD 10 Code: M54.17 M51.87 Procedure Note: Patient was consented for lumbar epidural steroid injection with fluoroscopic guidance. Risks were discussed including but not limited to: Bleeding, infection, possibility of epidural hematoma and subsequent neurological compromise, dural puncture, headaches, spinal cord and/or nerve damage, side effects of steroid medication, and poor results regarding pain control. Patient understands and wished to proceed. Procedure is lumbar epidural steroid injection under local anesthetic using sterile prep and drape at the L5-S1 level using C-arm fluoroscopic guidance in both AP and lateral views medications injected is 120 mg Depo-Medrol +10mL preservative-free normal saline and 2 mL contrast- condition at discharge is stable patient tolerated procedure well had no complications. ENRIQUE BECERRIL MD Aug 01, 2021 14:42
== END | disposition home or self-care (01) ==
LOC: PNCL 14:06
PROVIDERS: ATTEND Anesthesiology
DX: M51.16 Intervertebral disc disorders with radiculopathy, lumbar region (principal); I10 Essential (primary) hypertension; E78.00 Pure hypercholesterolemia, unspecified; J44.9 Chronic obstructive pulmonary disease, unspecified; G47.30 Sleep apnea, unspecified; K21.9 Gastro-esophageal reflux disease without esophagitis; M19.90 Unspecified osteoarthritis, unspecified site; E66.9 Obesity, unspecified; E11.9 Type 2 diabetes mellitus without complications; F32.9 Major depressive disorder, single episode, unspecified; Z90.49 Acquired absence of other specified parts of digestive tract; Z90.710 Acquired absence of both cervix and uterus; Z98.890 Other specified postprocedural states; Z79.899 Other long term (current) drug therapy; Z88.1 Allergy status to other antibiotic agents; Z88.8 Allergy status to other drugs, medicaments and biological substances
CPT/HCPCS: 62323; J1040; Q9965

== ENCOUNTER → 2021-10-03 | Outpatient (CLI) | payer MEDICARE ==
[~2021-10-03] MED LIST changes: +DEXAMETHASONE PRES.FREE 10 MG/ML VIAL. ONE; -methylPREDNISolone ACETATE 80 MG/ML VIAL. ONE
--- NOTE | 2021-10-03 15:24 | PDOC ---
Progress Note - Pain Clinic Date of Service: DOS: DATE: 10/03/21 TIME: 15:20 Diagnosis: Dx: Lumbar radiculopathy with lumbar degenerative disc disease Compression fracture L3 and L4 History or Present Illness: HPI: 81-year-old female returns for follow-up status post lumbar epidural steroid injection last seen July 27 patient did very well with about 50% improvement after the injection with the pain returning now over the past few weeks in the low back bilaterally and into the lower extremities posterior gluteus posterior thighs worse with walking standing change positions better with sitting for patient reports that the pain is a stabbing pain in the low back radiating to lower extremities as it was previously patient reports that she did very well initially was doing much better with distance walking doing household activities getting up and around with greater ease and sleeping better patient reports still better with laying down and sitting it wakes her from sleep occasionally but not most nights. Patient reports her pain is a 10 on scale 10 is worse over the past week 7 on average 7 its least and is a 7 today. Patient scribes pain is radiating aching stabbing at times severe and unbearable and dull in the back with shooting pains in the legs but again only with weightbearing and especially when getting up from seated position or standing for prolonged periods greater than 15 minutes. Patient did try meloxicam which we prescribed for her after last visit however did have some diarrhea from this and she discontinued this. We discussed patient's arthritis and will instead substitute diclofenac [address] daily [address] of the meloxicam. Physical Exam: VS: Blood pressure is 143/67 pulse 103 respirations 18 temperature 90.2 F height is 5 foot 2 inches weight is 187 pounds. PE: PHYSICAL EXAMINATION: GENERAL: The patient is awake, alert, oriented, appropriate, very pleasant in demeanor, patient [place] by her granddaughter HEENT: Shows normocephalic, atraumatic. Extraocular movements are intact and symmetrical. Oral cavity: Mucous membranes moist and pink. NECK: Shows anterior throat supple without palpable lymphadenopathy noted. Swallow reflex symmetrical. CHEST: Shows normal on inspection. Breath sounds are clear bilaterally, no rales or rhonchi. HEART: Shows S1, S2 clear. No murmurs auscultated. ABDOMEN: Soft, nontender, nondistended. No palpable organomegaly is noted. BACK: Shows spine grossly in the midline. Normal-appearing cervical lordotic curvature. There is moderately increased thoracic kyphosis, some flattening of the lumbar lordotic curvature. Lumbar paraspinous muscles show symmetrical on inspection, on palpation shows some moderate tenderness diffusely throughout the upper, middle and lower distribution of the paraspinous muscles, but without specific trigger points, without radiation of pain. The patient has good rotational motion of the lumbar spine, both laterally as well as extension and flexion without significant difficulty. EXTREMITIES: Lower extremities show deep tendon reflexes 1+ in the patellar and tendo calcaneus tendons. Motor exam is 4 on a scale of 5 with right dorsiflexion, extension, quadriceps and hamstring flexion and 4/5 on the left. Peripheral pulses are 1+ posterior tibial. No peripheral edema is noted bilaterally. Lower extremities are warm and dry to touch, equal in color and appearance. SKIN: Shows warm and dry, good turgor. No edema. No sores, rashes or bruising throughout. Procedure: Procedure: Options discussed with patient. Basal chart was viewed as her current medication regimen updated her review of systems updated today as well. We will proceed with a lumbar epidural steroid injection today with fluoroscopic guidance. Risks were discussed including but not limited to: Bleeding, infection, possibility of epidural hematoma and subsequent neurological compromise, dural puncture, headaches, spinal cord and/or nerve damage, side effects of steroid medication, and poor results regarding pain control. Patient understands and wished to proceed. Patient will return to clinic in approximately 4 weeks for follow-up, was counseled as to return appointment, activity level, and side effect to be aware of. Medication Injected: Med Injected: Procedure is lumbar epidural steroid injection under local anesthetic using sterile prep and drape at the L5-S1 level using C-arm fluoroscopic guidance in both AP and lateral views medications injected is 20 mg dexamethasone +10mL preservative-free normal saline and 2 mL contrast- condition at discharge is stable patient tolerated procedure well had no complications. Condition at Discharge: Condition at Discharge: Condition at discharge stable, patient tolerated the procedure well and had no complications. ENRIQUE BECERRIL MD Oct 03, 2021 15:24
--- NOTE | 2021-10-03 15:25 | PDOC4 ---
Procedure Note: ICD 10 Code: ICD 10 Code: M54.17 M51.87 Procedure Note: Patient was consented for lumbar epidural steroid injection fluoroscopic guidance. Risks were discussed including but not limited to: Bleeding, infection, possibility of epidural hematoma and subsequent neurological compromise, dural puncture, headaches, spinal cord and/or nerve damage, side effects of steroid medication, and poor results regarding pain control. Patient understands and wished to proceed. Procedure is lumbar epidural steroid injection under local anesthetic using sterile prep and drape at the L5-S1 level using C-arm fluoroscopic guidance in both AP and lateral views medications injected is 20 mg dexamethasone +10mL preservative-free normal saline and 2 mL contrast- condition at discharge is stable patient tolerated procedure well had no complications. ENRIQUE BECERRIL MD Oct 03, 2021 15:25
== END | disposition home or self-care (01) ==
LOC: PNCL 13:44
PROVIDERS: ATTEND Anesthesiology
DX: M51.16 Intervertebral disc disorders with radiculopathy, lumbar region (principal); M48.56XA Collapsed vertebra, not elsewhere classified, lumbar region, initial encounter for fracture; I10 Essential (primary) hypertension; E78.00 Pure hypercholesterolemia, unspecified; J44.9 Chronic obstructive pulmonary disease, unspecified; G47.30 Sleep apnea, unspecified; E66.9 Obesity, unspecified; E11.9 Type 2 diabetes mellitus without complications; K21.9 Gastro-esophageal reflux disease without esophagitis; F32.9 Major depressive disorder, single episode, unspecified; Z90.710 Acquired absence of both cervix and uterus; Z98.890 Other specified postprocedural states; Z79.899 Other long term (current) drug therapy; Z90.49 Acquired absence of other specified parts of digestive tract; Z87.891 Personal history of nicotine dependence; Z72.89 Other problems related to lifestyle; Z88.1 Allergy status to other antibiotic agents; Z88.8 Allergy status to other drugs, medicaments and biological substances
CPT/HCPCS: 62323; J1100; Q9965

== ENCOUNTER → 2021-11-22 | Outpatient (CLI) | payer MEDICARE ==
--- NOTE | 2021-11-22 09:34 | PDOC ---
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 Patient reports while she is sitting she is fairly comfortable when she gets up and around is when the pain begins patient reports no loss of motor function no bowel or bladder incontinence but significant fatigability of both lower extremities. Patient has significant swelling of both lower extremities as well salubrious discoloration which she is somewhat concerned about today also. Patient is wearing compression stockings on presentation as well. We discussed the swelling and she will have this looked at with her primary care physician. She is scheduled to see next week as well. Physical Exam: VS: Blood pressure is 112/62 pulse 93 respirations 18 temperature 98.5 F height is 5 feet 2 inches weight is 187 pounds. PE: PHYSICAL EXAMINATION: GENERAL: The patient is awake, alert, oriented, appropriate, very pleasant in demeanor, patient companied by her niece. HEENT: Shows normocephalic, atraumatic. Extraocular movements are intact and symmetrical. Oral cavity: Mucous membranes moist and pink. NECK: Shows anterior throat supple without palpable lymphadenopathy noted. Swallow reflex symmetrical. CHEST: Shows normal on inspection. Breath sounds are clear bilaterally, distant but no rales or rhonchi auscultated. HEART: Shows S1, S2 clear. No murmurs auscultated. ABDOMEN: Soft, nontender, nondistended. No palpable organomegaly is noted. BACK: Shows spine grossly in the midline. Normal-appearing cervical lordotic curvature. There is increased thoracic kyphosis, some moderate flattening of the lumbar lordotic curvature. Lumbar paraspinous muscles show symmetrical on inspection, on palpation shows some moderate tenderness diffusely throughout the upper, middle and lower distribution of the paraspinous muscles without specific trigger points, without radiation of pain. The patient has good rotational mo tion of the lumbar spine, both laterally as well as extension and flexion without significant difficulty. EXTREMITIES: Lower extremities show deep tendon reflexes 1 in the patellar and tendo calcaneus tendons. Motor exam is 4 on a scale of 5 with right dorsiflexion, extension, quadriceps and hamstring flexion and 4/5 on the left. Peripheral pulses are 1+ to posterior tibial. 2+ peripheral edema is noted bilaterally, with ruborous discoloration left side greater than right. Lower extremities are warm and dry to touch. SKIN: Shows warm and dry, good turgor. No edema. No sores, rashes or bruising throughout. Procedure: Procedure: Options were discussed with patient. Patient's old chart was reviewed as her current medication regimen updated current review of systems updated today as well. We will proceed with a lumbar epidural steroid injection today with fluoroscopic guidance. Risks were discussed including but not limited to: Bleeding, infection, possibility of epidural hematoma and subsequent neurological compromise, dural puncture, headaches, spinal cord and/or nerve damage, side effects of steroid medication, and poor results regarding pain control. Patient understands and wished to proceed. Patient will return to clinic in approximately 4 weeks for follow-up, was counseled as to return appointment, active level, and side effects to be aware of. Medication Injected: Med Injected: Procedure is lumbar epidural steroid injection under local anesthetic using sterile prep and drape at the L5-S1 level using C-arm fluoroscopic guidance in both AP and lateral views medications injected is 20 mg dexamethasone +10mL preservative-free normal saline and 2 mL contrast- condition at discharge is s table patient tolerated procedure well had no complications. Condition at Discharge: Condition at Discharge: Condition at discharge stable, patient tolerated procedure well had no complications. ENRIQUE BECERRIL MD November 22, 2021 09:34
--- NOTE | 2021-11-22 09:34 | PDOC4 ---
Procedure Note: ICD 10 Code: ICD 10 Code: M54.17 M51.87 Procedure Note: Patient was consented for lumbar epidural steroid injection with fluoroscopic guidance. Risks were discussed including but not limited to: Bleeding, infection, possibility of epidural hematoma and subsequent neurological compromise, dural puncture, headaches, spinal cord and/or nerve damage, side effects of steroid medication, and poor results regarding pain control. Patient understands and wished to proceed. Procedure is lumbar epidural steroid injection under local anesthetic using sterile prep and drape at the L5-S1 level using C-arm fluoroscopic guidance in both AP and lateral views medications injected is 20 mg dexamethasone +10mL preservative-free normal saline and 2 mL contrast- condition at discharge is stable patient tolerated procedure well had no complications. ENRIQUE BECERRIL MD November 22, 2021 09:34
== END | disposition home or self-care (01) ==
LOC: PNCL 08:33
PROVIDERS: ATTEND Anesthesiology
DX: M51.16 Intervertebral disc disorders with radiculopathy, lumbar region (principal); I10 Essential (primary) hypertension; E78.00 Pure hypercholesterolemia, unspecified; J44.9 Chronic obstructive pulmonary disease, unspecified; G47.30 Sleep apnea, unspecified; E66.9 Obesity, unspecified; K21.9 Gastro-esophageal reflux disease without esophagitis; E11.9 Type 2 diabetes mellitus without complications; F32.9 Major depressive disorder, single episode, unspecified; Z90.710 Acquired absence of both cervix and uterus; Z90.49 Acquired absence of other specified parts of digestive tract; Z98.890 Other specified postprocedural states; Z79.899 Other long term (current) drug therapy; Z87.891 Personal history of nicotine dependence; Z88.1 Allergy status to other antibiotic agents; Z88.8 Allergy status to other drugs, medicaments and biological substances; Z72.89 Other problems related to lifestyle
CPT/HCPCS: 62323; J1100; Q9965